=== PATIENT | male | born 1930 | race Caucasian/White ===

== ENCOUNTER 2018-02-04 15:47 | Inpatient (IN) | payer OTHER, MEDICARE ==
[~2018-02-04] VITALS: Ht 182.9 cm; Wt 97.5 kg
[~2018-02-04 15:47] MED LIST: ARICEPT10 M1 PO; ASPIRIN81 M4 PO; AVELOX400 M1 PO; DITROPAN XL15 M1 PO; FLOMAX0.4 M1 PO; LEXAPRO10 M1 PO; NAMENDA10 M2 PO; ZYRTEC10 M3 PO
[2018-02-04 17:18] LABS: ABSOLUTE BASOPHIL COUNT 0 /CUMM (0.0-0.2); ABSOLUTE EOSINOPHIL COUNT 0.1 /CUMM (0.0-0.7); ABSOLUTE GRANULOCYTE CT 4.7 /CUMM (1.4-6.5); ABSOLUTE LYMPH COUNT 0.7 /CUMM (1.2-3.4); ABSOLUTE MONOCYTE COUNT 0.3 /CUMM (0.10-0.60); BASOPHIL % 0 % (0.0-2.0); EOSINOPHIL % 2.2 % (0-5); GRANULOCYTE % 79.5 % (42.2-75.2); HEMATOCRIT 44.7 % (42-52); MEAN CORPUSCULAR HGB 26.6 PG (27.0-31.0); MEAN CORPUSCULAR HGB CONC 32.8 G/DL (33.0-37.0); MEAN CORPUSCULAR VOLUME 81.1 FL (80.0-94.0); MEAN PLATELET VOLUME 8.6 FL (7.4-10.4); PLATELET COUNT 187 /CUMM (130-400); RBC DISTRIBUTION WIDTH 13.7 % (11.5-14.5); RED BLOOD CELL CT 5.51 /CUMM (4.70-6.10); WHITE BLOOD CELL COUNT 5.9 /CUMM (4.8-10.8)
[2018-02-04 17:31] LABS: PT 12.2 SEC (9.4-12.5); PTT 30 SEC (25-37)
--- NOTE | 2018-02-04 17:44 | CT SCAN REPORT ---
CT HEAD WITHOUT IV CONTRAST CT CERVICAL SPINE WITHOUT IV CONTRAST INDICATION: Unwitnessed fall. Head strike. COMPARISON: Head CT 01/01/2017. TECHNIQUE: Multidetector CT acquisitions of the head and cervical spine were obtained without IV contrast. Multiplanar reformats were acquired and utilized for image interpretation. FINDINGS: HEAD: There is global cerebral volume loss with a temporal lobe predominance and there is also moderate to severe lateral and third ventriculomegaly that is disproportionate to sulcal prominence which should be correlated for clinical signs of normal pressure hydrocephalus. There is no intracranial hemorrhage, hydrocephalus, extra-axial surface collection, midline shift, or other herniation pattern. Shen to white matter differentiation is diffusely maintained without evidence of an evolved acute territorial infarct. The basilar cisterns are preserved. No significant soft tissue abnormality. Similar appearing partially imaged complete opacification of the left maxillary sinus with central high density material that may reflect inspissated secretions or the sequela of allergic fungal sinusitis. There is stable depression of the left orbital floor and lateralization of the left uncinate process suggesting a component of underlying silent sinus syndrome. ENT consultation and dedicated maxillofacial CT recommended for further assessment. CERVICAL SPINE: Mild anterior degenerative subluxation of C7 on T1. Cervical alignment is otherwise maintained. Moderate to severe disc volume loss at all cervical levels with the exception of C3-C4 and C7-T1. Multilevel endplate osteophytes. Hypertrophic degenerative changes involving the atlantodental interval. There is no acute fracture and there is no acute subluxation. The craniocervical and atlantoaxial articulations are normal. There is no prevertebral soft tissue swelling. No significant soft tissue abnormality within the neck. The visualized lung apices are clear. IMPRESSION: - No acute intracranial abnormality. - There is similar global cerebral volume loss with a temporal lobe predominance and there is also moderate to severe lateral and third ventriculomegaly that is disproportionate to sulcal prominence which should be correlated for clinical signs of normal pressure hydrocephalus. - No acute osseous abnormality within the cervical spine. Moderate to severe cervical spondylosis. - Similar appearing partially imaged complete opacification of the left maxillary sinus with central high density material that may reflect inspissated secretions or the sequela of allergic fungal sinusitis. There is stable depression of the left orbital floor and lateralization of the left uncinate process suggesting a component of underlying silent sinus syndrome. ENT consultation and dedicated maxillofacial CT recommended for further assessment.
--- NOTE | 2018-02-04 17:52 | ED MVC/FALL/TRAUMA COMPLAINT ---
See Addendum History of Present Illness General Chief Complaint: Fall Stated Complaint: BIBA FOR FALL/IRREGULAR HEARTBEAT PER EMS Source: patient, family, EMS Exam Limitations: no limitations Vital Signs & Intake/Output Vital Signs & Intake/Output Vital Signs Date Time Temp Pulse Resp B/P B/P Pulse O2 O2 Flow FiO2 Mean Ox Delivery Rate 02/04 2253 94 18 148/78 93 Room Air 02/04 1559 95 Room Air Room Air 02/04 1558 68 18 137/63 95 Room Air Room Air ED Intake and Output 02/05 0000 02/04 1200 Intake Total 100 Output Total Balance 100 Intake, IV 100 Patient 195 lb Weight Weight Estimated Measurement Method Allergies Coded Allergies: No Known Allergies (01/01/17) Reconcile Medications Aspirin (Aspirin*) 81 MG TAB.CHEW 1 TAB PO DAILY HEART HEALTH (Reported) Cetirizine HCl (Zyrtec) 10 MG TABLET 1 TAB PO QPM ALLERGIES (Reported) Donepezil HCl (Aricept) 10 MG TABLET 1 TAB PO DAILY DEMENTIA (Reported) Escitalopram Oxalate (Lexapro) 10 MG TABLET 1 TAB PO DAILY DEPRESSION ( Reported) Memantine HCl (Namenda) 10 MG TABLET 1 TAB PO BID DEMENTIA (Reported) Moxifloxacin HCl (Avelox) 400 MG TABLET 1 TAB PO DAILY PNEUMONIA Oxybutynin Chloride (Ditropan XL) 15 MG TAB.ER.24 1 TAB PO DAILY BLADDER ( Reported) Tamsulosin HCl (Flomax) 0.4 MG CAP.ER.24H 1 CAP PO DAILY BPH (Reported) Triage Note: BIBA FROM ASSISTED [facility]IV[facility] S/P UNWITNESSED FALL, WHO IS [place] "HEARD IT FROM THE OTHER ROOM". PER EMS PT FOUND ON FLOOR, -LOC NO BLOOD THINNERS. SMALL LAC TO LEFT SIDE OF HEAD. HX DEMENTIA Triage Nurses Notes Reviewed? yes Onset: Abrupt Duration: hour(s): (2), constant, continues in ED, getting worse Timing: single episode today Severity: mild, moderate Severity Numbers: 7 Injuries/Fall Location: lower extremity Method of Injury: fall Loss of Consciousness: unsure No Modifying Factors: none HPI: 80-year-old male history of dementia hypertension brought in by ambulance for evaluation after a fall. According to EMS patient was brought from a assisted living. who lives with him was in the other room when she heard a thud and he was found on the ground.. EMS arrived to find the patient on the ground complaining of pain to his left hip and head. He suffered a small abrasion and hematoma to the head. Unsure of loss of consciousness. Is not clear how he fell whether he tripped or passed out. Patient does have a history of unsteady gait and multiple falls. According to the facility he has a standing pivot at baseline he spends most of his time in a wheelchair. No blood thinners. According to his family he was at the bedside they feel his mental status is at baseline. He has had no fevers no chest pain no back pain or neck pain. (Laith Cross) Past History Travel History Traveled to [place] past 21 day No Medical History Any Pertinent Medical History? see below for history Neurological: dementia Cardiovascular: hypertension Renal: chronic kidney disease Surgical History Surgical History: none Psychosocial History What is your primary language Estonian Tobacco Use: Quit >30 days ago ETOH Use: denies use Illicit Drug Use: denies illicit drug use Family History Hx Contributory? No (Laith Cross) Review of Systems Review of Systems Constitutional: Reports: no symptoms. Eyes: Reports: no symptoms. Ears, Nose, Throat, Mouth: Reports: no symptoms. Respiratory: Reports: no symptoms. Cardiovascular: Reports: no symptoms. Gastrointestinal/Abdominal: Reports: no symptoms. Genitourinary: Reports: no symptoms. Musculoskeletal: Reports: see HPI, joint pain. Skin: Reports: no symptoms. Neurological/Psychological: Reports: dementia. All Other Systems: Reviewed and Negative (Laith Cross) Physical Exam Physical Exam General Appearance: well developed/nourished, no apparent distress, alert, awake Head: normal appearance, THERE IS A SUPERFICAL ABRASION AND SODT TISSUE SWELLING TO THE LEFT OCCIPTAL SCALP. NO LACERATION. NO GROSS DEFORMITY Eyes: Bilateral: normal appearance, PERRL, EOMI. Ears, Nose, Throat, Mouth: Tympanic normal, decreased hearing Neck: normal inspection, supple, full range of motion, no midline tenderness Respiratory: normal breath sounds, no respiratory distress, lungs clear, THERE IS TENDERNESS TO PALPATION OF THE BILATERAL RIBS ON THE LATERAL; ASPECT. NO BRUSING SWELLING OR ABRASIONS. NO FLAIL CHEST. Cardiovascular: regular rate/rhythm, normal peripheral pulses Peripheral Pulses: 2+ radial (R), 2+ radial (L) Gastrointestinal: normal bowel sounds, soft, non-tender, no organomegaly Back: normal inspection, normal range of motion, no vertebral tenderness Extremities: THERE IS REDUCED ROM AND PAIN TO PALPATION IN THE LEFT HIP. NO GROSS DEFORMITY. NO BRUSING SWELLING OR ABRASIONS. NO PAIN TO PALPATION ION THE KNEE OR LOWER LEG. PERIPHERAL PULSES INTACT. NO OTHER JOINT SWELLING OR PAIN Neurologic/Psych: no motor/sensory deficits, awake, alert, ORIENTED TO PERSON ONLY Skin: intact, normal color, warm/dry Core Measures ACS in differential dx? No CVA/TIA Diagnosis No Sepsis Present: No Sepsis Focused Exam Completed? No (Adolfo STEIN,Laith) Progress Differential Diagnosis: abd injury, C/T/L spine injury, ext injury, ICH, pelvis injury, FRACTURE CONTUSION SPRAIN Plan of Care: Orders Procedure Date/time Status Regular Diet 02/05 B Active CBC WITHOUT DIFFERENTIAL 02/05 600 Active BASIC ELECTROLYTES PLUS BUN&CR 02/05 600 Active Straight Cath 02/05 UNK Active Pathway - chart 02/04 2230 Active House Staff 02/04 2230 Active Patient Data 02/04 2230 Active Code Status 02/04 2230 Active Add-on Test (ER Only) 02/04 2047 Active Patient Data 02/04 2037 Active ED Holding Orders 02/04 2035 Active Admit to inpatient 02/04 2035 Active Vital Signs 02/04 2035 Active Code Status 02/04 2035 Complete Intake & Output 02/04 1823 Active CREATINE PHOSPHOKINASE 02/04 1640 Complete URINALYSIS 02/04 1553 Active TSH REFLEX 02/04 1553 Complete TROPONIN LEVEL 02/04 1553 Complete PARTIAL THROMBOPLASTIN TIME 02/04 1553 Complete PROTHROMBIN TIME 02/04 1553 Complete MAGNESIUM 02/04 1553 Complete COMPREHENSIVE METABOLIC PANEL 02/04 1553 Complete CBC WITHOUT DIFFERENTIAL 02/04 1553 Complete EKG 02/04 1553 Active VTE Mechanical Prophylaxis 02/04 UNK Active Vital Signs 02/04 UNK Active Activity/Ambulation 02/04 UNK Active Current Medications Sig/Mame Start time Last Medication Dose Stop Time Status Admin Aspirin 81 MG DAILY 02/05 900 AC (Aspirin) Donepezil HCl 10 MG DAILY 02/05 09 AC (Aricept) Escitalopram Oxalate 10 MG DAILY 02/05 900 AC (Lexapro) Memantine 10 MG BID 02/05 900 AC (Namenda) Oxybutynin Chloride 5 MG TID 02/05 09 AC (Ditropan) Tamsulosin HCl 0.4 MG DAILY 02/05 09 AC (Flomax) Heparin Sodium 5,000 UNIT Q8 02/05 0600 AC (Porcine) Sodium Chloride 1,000 ML Q13H 02/04 2245 AC (Normal Saline 0.9%) 02/06 0044 Acetaminophen 650 MG Q6P PRN 02/04 2230 AC (Tylenol) Acetaminophen 1,000 MG Q6P PRN 02/04 2230 AC (Ofirmev) Oxycodone/ 1 TAB Q6P PRN 02/04 2230 AC Acetaminophen (Percocet) Laboratory Tests 02/04/18 1640: Anion Gap 7, Estimated GFR > 60, BUN/Creatinine Ratio 23.0, Glucose 98, Calcium 8.9, Magnesium 2.0, Total Bilirubin 0.5, AST 23, ALT 33, Alkaline Phosphatase 86 , Creatine Kinase 43 L, Troponin I 0.03, Total Protein 6.6, Albumin 3.8, Globulin 2.8, Albumin/Globulin Ratio 1.4, TSH &T3 &Free T4 Intrp 1.450, PT 12.2, INR 1.12, APTT 30, CBC w Diff NO MAN DIFF REQ, RBC 5.51, MCV 81.1, MCH 26.6 L, MCHC 32.8 L, RDW 13.7, MPV 8.6, Gran % 79.5 H, Lymphocytes % 12.6 L, Monocytes % 5.7, Eosinophils % 2.2, Basophils % 0, Absolute Granulocytes 4.7, Absolute Lymphocytes 0.7 L, Absolute Monocytes 0.3, Absolute Eosinophils 0.1, Absolute Basophils 0 Patient was brought in by ambulance from a senior care facility for evaluation after a fall. According to the family and facility he usually only stands and pivots. He did hit his head and has pain in the left lateral hip. CT scans of the head neck chest abdomen pelvis were obtained labs EKG obtained. CT scans are unremarkable for signs of acute injury. Blood work EKG unremarkable. Patient is below his baseline. He currently is unable to even sit up in the bed without severe pain in the hip. X-rays will be obtained to rule out fracture of both the hip and femur. Patient will require admission for placement into an acute rehab since he was unable to even sit up in the bed where he usually is able to stand and pivot. Patient will require case management, physical therapy, serial labs, pain control. Case discussed with Dr. Chilel he agrees. Diagnostic Imaging: Viewed by Me: CT Scan. Discussed w/RAD: CT Scan. Radiology Impression: PATIENT: KAY GORMAN PRESENT AGE: 88 PATIENT ACCOUNT NO: [id number] : [birth year] LOCATION: [facility] ORDERING PHYSICIAN: Laith STEIN SERVICE DATE: 02/04/18 EXAM TYPE: CAT - CT CERV SPINE WO IV CONTRAST; CT HEAD WO IV CONTRAST CT HEAD WITHOUT IV CONTRAST CT CERVICAL SPINE WITHOUT IV CONTRAST INDICATION: Unwitnessed fall. Head strike. COMPARISON: Head CT 01/01/2017. TECHNIQUE: Multidetector CT acquisitions of the head and cervical spine were obtained without IV contrast. Multiplanar reformats were acquired and utilized for image interpretation. FINDINGS: HEAD: There is global cerebral volume loss with a temporal lobe predominance and there is also moderate to severe lateral and third ventriculomegaly that is disproportionate to sulcal prominence which should be correlated for clinical signs of normal pressure hydrocephalus. There is no intracranial hemorrhage, hydrocephalus, extra-axial surface collection, midline shift, or other herniation pattern. Shen to white matter differentiation is diffusely maintained without evidence of an evolved acute territorial infarct. The basilar cisterns are preserved. No significant soft tissue abnormality. Similar appearing partially imaged complete opacification of the left maxillary sinus with central high density material that may reflect inspissated secretions or the sequela of allergic fungal sinusitis. There is stable depression of the left orbital floor and lateralization of the left uncinate process suggesting a component of underlying silent sinus syndrome. ENT consultation and dedicated maxillofacial CT recommended for further assessment. CERVICAL SPINE: Mild anterior degenerative subluxation of C7 on T1. Cervical alignment is otherwise maintained. Moderate to severe disc volume loss at all cervical levels with the exception of C3-C4 and C7-T1. Multilevel endplate osteophytes. Hypertrophic degenerative changes involving the atlantodental interval. There is no acute fracture and there is no acute subluxation. The craniocervical and atlantoaxial articulations are normal. There is no prevertebral soft tissue swelling. No significant soft tissue abnormality within the neck. The visualized lung apices are clear. IMPRESSION: - No acute intracranial abnormality. - There is similar global cerebral volume loss with a temporal lobe predominance and there is also moderate to severe lateral and third ventriculomegaly that is disproportionate to sulcal prominence which should be correlated for clinical signs of normal pressure hydrocephalus. - No acute osseous abnormality within the cervical spine. Moderate to severe cervical spondylosis. - Similar appearing partially imaged complete opacification of the left maxillary sinus with central high density material that may reflect inspissated secretions or the sequela of allergic fungal sinusitis. There is stable depression of the left orbital floor and lateralization of the left uncinate process suggesting a component of underlying silent sinus syndrome. ENT consultation and dedicated maxillofacial CT recommended for further assessment. DICTATED BY: Jethro Harman MD DATE/TIME DICTATED:02/04/181721 [employer] DIV[employer] SUPERVISOR:MARITZA DATE/TIME TRANSCRIBED:1721, PATIENT: KAY GORMAN PRESENT AGE: 88 PATIENT ACCOUNT NO: [id number] : [birth year] LOCATION: [facility] ORDERING PHYSICIAN: Laith STEIN SERVICE DATE: 02/04/18 EXAM TYPE: CAT - CT ABD & PELVIS W /O IV CONTRAS; CT CHEST WO IV CONTRAST EXAMINATION: CT CHEST, ABDOMEN AND PELVIS WITHOUT CONTRAST CLINICAL INFORMATION: Fall. Bilateral rib pain. Bilateral hip pain. Pelvic pain. COMPARISON: None. TECHNIQUE: Multidetector volumetric CT imaging of the chest, abdomen and pelvis was obtained without oral or intravenous contrast. Coronal and sagittal reformatted images are performed at the CT scanner. DLP: 1293.88 mGy-cm. FINDINGS: The patient was imaged with the arms at the side. This does cause streak artifact for the study. CT CHEST: LUNGS : There is a small linear reticular opacity in the subpleural lung at the right upper lobe posteriorly, image 11 (3) likely linear scarring. There is also linear opacities of scarring and/or subsegmental atelectasis at the left lung base. The left diaphragm is asymmetrically elevated. No focal consolidation. The central bronchial airways are open. MEDIASTINUM: No mediastinal mass or significant lymphadenopathy. There are vascular wall calcifications of aortic arch. PLEURA: There is no pleural effusion. No pleural mass or thickening. AXILLA: No lymphadenopathy. CT ABDOMEN AND PELVIS: LIVER, GALLBLADDER, AND BILIARY TREE: There is a 3 cm cyst in the left lobe of the liver. No suspicious liver lesions. No intrahepatic bile duct dilatation. The gallbladder is unremarkable with no evidence of radiopaque gallstones, gallbladder wall thickening, or obvious pericholecystic inflammatory changes. PANCREAS: No acute change of the pancreas. No mass. No pancreatic duct dilatation. SPLEEN: Spleen normal in size and contour. No focal lesion. ADRENAL GLANDS: Adrenal glands are normal in size. No focal mass. KIDNEYS AND URETERS: There are multiple bilateral renal cysts. There is no calculus or hydronephrosis. BLADDER: Though bladder has not herniating the dome of the bladder does extend toward the right inguinal hernia. GASTROINTESTINAL TRACT: There is diverticulosis of the colon. The diverticula are most numerous at the sigmoid. There is no diverticulitis. No bowel wall thickening or edema. The appendix is not seen. There is no inflammation of the mesentery. The small bowel loops are unremarkable. MESENTERY : No focal inflammation. No free fluid. No free air. ABDOMINAL WALL: There are fat-containing bilateral inguinal hernias. These measure 6 x 4 cm on the left and 4 x 5 cm on the right. LYMPH NODES: Normal. VASCULAR: There are scattered vascular wall calcifications of the aorta and iliac arteries without aneurysm. PELVIC VISCERA: Unremarkable. OSSEOUS STRUCTURES: There is no acute abnormality. No fracture. Degenerative spondylosis of the spine with multilevel endplate spurring of the vertebrae, disc height narrowing and facet joint arthrosis. There is degenerative spurring of femoral head and acetabula of both hips with mild joint space narrowing but no erosion. IMPRESSION: No acute abnormality of the chest, abdomen or pelvis. DICTATED BY: Krzysztof Rob MD DATE/TIME DICTATED:1755 [employer] DIV[employer] SUPERVISOR:MARITZA DATE/TIME TRANSCRIBED:02/04/181755 CONFIDENTIAL, DO NOT COPY WITHOUT APPROPRIATE AUTHORIZATION. <Electronically signed in Other Vendor System> SIGNED BY: Krzysztof Rob MD 02/04/18 294 Initial ED EKG: normal sinus rhythm, PVC, INCOMPLETE LBBB ANTERIOR Q WAVES (Laith Cross) Departure Departure Disposition: STILL A PATIENT Condition: Stable Referrals: Susi MCCRAY,Flaco Redd (PCP/Family) Departure Forms: Customer Survey General Discharge Information Admission Note Spoke With: Sherita Burroughs MD Documentation of Exam: Documentation of any treatments & extenuating circumstances including Concerns Regarding Discharge (functional status, medication knowledge or non-compliance, living conditions, etc.) that warrant an admission rather than observation: [ Case management, physical therapy, placement into acute rehab, monitoring of vital signs, serial labs, IV pain meds, patient is not at his baseline. He is unable to stand and pivot he is unable to even sit up in the bed] (Adolfo STEIN,Laith) Departure Clinical Impression Primary Impression: Hip pain, left Secondary Impressions: Closed left hip fracture, Gait instability, Weakness PA/METAL DRILL PRESS OPERATOR Co-Sign Statement Statement: ED Attending supervision documentation- [X] I saw and evaluated the patient. I have also reviewed all the pertinent lab results and diagnostic results. I agree with the findings and the plan of care as documented in the PA's/METAL DRILL PRESS OPERATOR's documentation. [X] I have reviewed the ED Record and agree with the PA's/METAL DRILL PRESS OPERATOR's documentation. [] Additions or exceptions (if any) to the PAs/METAL DRILL PRESS OPERATOR's note and plan are summarized below: [LEFT HIPFRACTURE, ORTHO CONSULT PAINCONTROL] (Ranjana MCCRAY,Jayce Em)
--- NOTE | 2018-02-04 18:42 | CT SCAN REPORT ---
EXAMINATION: CT CHEST, ABDOMEN AND PELVIS WITHOUT CONTRAST CLINICAL INFORMATION: Fall. Bilateral rib pain. Bilateral hip pain. Pelvic pain. COMPARISON: None. TECHNIQUE: Multidetector volumetric CT imaging of the chest, abdomen and pelvis was obtained without oral or intravenous contrast. Coronal and sagittal reformatted images are performed at the CT scanner. DLP: 1293.88 mGy-cm. FINDINGS: The patient was imaged with the arms at the side. This does cause streak artifact for the study. CT CHEST: LUNGS: There is a small linear reticular opacity in the subpleural lung at the right upper lobe posteriorly, image 11 (3) likely linear scarring. There is also linear opacities of scarring and/or subsegmental atelectasis at the left lung base. The left diaphragm is asymmetrically elevated. No focal consolidation. The central bronchial airways are open. MEDIASTINUM: No mediastinal mass or significant lymphadenopathy. There are vascular wall calcifications of aortic arch. PLEURA: There is no pleural effusion. No pleural mass or thickening. AXILLA: No lymphadenopathy. CT ABDOMEN AND PELVIS: LIVER, GALLBLADDER, AND BILIARY TREE: There is a 3 cm cyst in the left lobe of the liver. No suspicious liver lesions. No intrahepatic bile duct dilatation. The gallbladder is unremarkable with no evidence of radiopaque gallstones, gallbladder wall thickening, or obvious pericholecystic inflammatory changes. PANCREAS: No acute change of the pancreas. No mass. No pancreatic duct dilatation. SPLEEN: Spleen normal in size and contour. No focal lesion. ADRENAL GLANDS: Adrenal glands are normal in size. No focal mass. KIDNEYS AND URETERS: There are multiple bilateral renal cysts. There is no calculus or hydronephrosis. BLADDER: Though bladder has not herniating the dome of the bladder does extend toward the right inguinal hernia. GASTROINTESTINAL TRACT: There is diverticulosis of the colon. The diverticula are most numerous at the sigmoid. There is no diverticulitis. No bowel wall thickening or edema. The appendix is not seen. There is no inflammation of the mesentery. The small bowel loops are unremarkable. MESENTERY: No focal inflammation. No free fluid. No free air. ABDOMINAL WALL: There are fat-containing bilateral inguinal hernias. These measure 6 x 4 cm on the left and 4 x 5 cm on the right. LYMPH NODES: Normal. VASCULAR: There are scattered vascular wall calcifications of the aorta and iliac arteries without aneurysm. PELVIC VISCERA: Unremarkable. OSSEOUS STRUCTURES: There is no acute abnormality. No fracture. Degenerative spondylosis of the spine with multilevel endplate spurring of the vertebrae, disc height narrowing and facet joint arthrosis. There is degenerative spurring of femoral head and acetabula of both hips with mild joint space narrowing but no erosion. IMPRESSION: No acute abnormality of the chest, abdomen or pelvis.
--- NOTE | 2018-02-04 20:55 | History & Physical ---
Elise Robertson 02/04/182053: General Information and HPI MD Statement: I have seen and personally examined KAY GORMAN and documented this H&P. The patient is a 88 year old M who presented with a patient stated chief complaint of []. Source of Information: old records Exam Limitations: dementia History of Present Illness: 88 year old male with PMH HTN and dementia presenting s/p unwitnessed fall earlier today. No one was with the patient when we went to see him. Per ED record who spoke to family; patient's heard a noise and found the patient on the floor. They live in an assisted living. EMS was called and patient brought to ED. Per family there was no LOC and patient is not on blood thinners. Patient was complaining of head pain and left hip pain post fall. Allergies/Medications Allergies: Coded Allergies: No Known Allergies (01/01/17) Home Med list Aspirin (Aspirin*) 81 MG TAB.CHEW 1 TAB PO DAILY HEART HEALTH (Reported) Cetirizine HCl (Zyrtec) 10 MG TABLET 1 TAB PO QPM ALLERGIES (Reported) Donepezil HCl (Aricept) 10 MG TABLET 1 TAB PO DAILY DEMENTIA (Reported) Escitalopram Oxalate (Lexapro) 10 MG TABLET 1 TAB PO DAILY DEPRESSION ( Reported) Memantine HCl (Namenda) 10 MG TABLET 1 TAB PO BID DEMENTIA (Reported) Moxifloxacin HCl (Avelox) 400 MG TABLET 1 TAB PO DAILY PNEUMONIA Oxybutynin Chloride (Ditropan XL) 15 MG TAB.ER.24 1 TAB PO DAILY BLADDER ( Reported) Tamsulosin HCl (Flomax) 0.4 MG CAP.ER.24H 1 CAP PO DAILY BPH (Reported) Past History Travel History Traveled to [place] past 21 day No Medical History Neurological: dementia Cardiovascular: hypertension Renal: chronic kidney disease Surgical History Surgical History: none Past Family/Social History Psychosocial History Where do you live? Assisted Living Who Do You Live With? spouse Smoking Status: Never Smoked ETOH Use: denies use Illicit Drug Use: denies illicit drug use Employment History Employment Retired Review of Systems Review of Systems Constitutional: Reports: see HPI. EENTM: Reports: see HPI. Cardiovascular: Reports: see HPI. Respiratory: Reports: see HPI. GI: Reports: see HPI. Genitourinary: Reports: see HPI. Musculoskeletal: Reports: see HPI, joint pain. Skin: Reports: no symptoms. Exam & Diagnostic Data Last 24 Hrs of Vital Signs/I&O Vital Signs Date Time Temp Pulse Resp B/P B/P Pulse O2 O2 Flow FiO2 Mean Ox Delivery Rate 02/04 2253 94 18 148/78 93 Room Air 02/04 1559 95 Room Air Room Air 02/04 1558 68 18 137/63 95 Room Air Room Air Intake & Output 02/05 0800 02/05 0000 02/04 1600 Intake Total 100 Output Total Balance 100 Intake, IV 100 Patient 195 lb Weight Weight Estimated Measurement Method Physical Exam General Appearance No Acute Distress (A&Ox1; self) Skin No Rashes Skin Temp/Moisture Exam: Warm/Dry HEENT Atraumatic Neck Supple Cardiovascular Regular Rate, Normal S1, Normal S2, ? diastolic murmur Lungs Clear to Auscultation Abdomen Normal Bowel Sounds, Soft Extremities Normal Pulses, mild shortening of LLE; externally rotated, DP/PT intact BLE Assessment/Plan Assessment: 88 year old male with PMH HTN and dementia presenting s/p unwitnessed fall earlier today. No one was with the patient when we went to see him. Per ED record who spoke to family; patient's heard a noise and found the patient on the floor. They live in an assisted living. EMS was called and patient brought to ED. Per family there was no LOC and patient is not on blood thinners. Patient was complaining of head pain and left hip pain post fall. Patient found to have Left femoral neck fracture. Will admit to general medicine service for further care of the following: Problem List: 1. Left Femoral Neck Fracture Admission Data: VS P68 RR18 BP137/63 Sat95%RA Labs: WBC 5.9 H/H 14.7/44.7 Plt 187 Na 139 K4.2 BUN/Cr 23/1.0 TSH WNL, LFTs WNL XR left hip: IMPRESSION: Subtle left femoral neck fracture. CT chest/abd/pelv: no acute disease process CT head/ C-spine: IMPRESSION: - No acute intracranial abnormality. - There is similar global cerebral volume loss with a temporal lobe predominance and there is also moderate to severe lateral and third ventriculomegaly that is disproportionate to sulcal prominence which should be correlated for clinical signs of normal pressure hydrocephalus. - No acute osseous abnormality within the cervical spine. Moderate to severe cervical spondylosis. - Similar appearing partially imaged complete opacification of the left maxillary sinus with central high density material that may reflect inspissated secretions or the sequela of allergic fungal sinusitis. There is stable depression of the left orbital floor and lateralization of the left uncinate process suggesting a component of underlying silent sinus syndrome. ENT consultation and dedicated maxillofacial CT recommended for further assessment. ED Tx: IV tylenol #Acute Left Femoral Neck Fracture s/p unwitnessed fall- mechanical vs NPH associated gait instability? -Ortho consulted; awaiting recs -IV tylenol and percocet for pain -Daughter want to be contacted before ortho interventions implemented should they be recommended. DVT prophylaxis: heparin/ALPS Code status: full code until discuss with family As Ranked By This Provider Problem List: 1. Closed left hip fracture Core Measures/Misc (02/25) Acute Coronary Syndrome ACS Diagnosis: No Congestive Heart Failure Congestive Heart Failure Diagnosis No Cerebrovascular Accident CVA/TIA Diagnosis: No VTE (View Protocol) VTE Risk Factors Acute Medical Illness No Mechanical VTE Prophylaxis d/t N/A MechProphylax Ordered No VTE Pharm Prophylaxis d/t NA PharmProphylax ordered Sepsis (View protocol) Sepsis Present: No If YES complete Sepsis Event Note If YES complete Sepsis Event Note Sherita Burroughs MD 02/05/18 0020: Core Measures/Misc (02/25) Sepsis (View protocol) If YES complete Sepsis Event Note If YES complete Sepsis Event Note Attending MD Review Statement Attending Statement Attending MD Statement: examined this patient, discuss w/resident/PA/TUBE LASER OPERATOR, agreed w/resident/PA/TUBE LASER OPERATOR, reviewed EMR data (avail) Attending Assessment/Plan: 88M PMH dementia, HTN, BPH presents with fall. Patient lives in assisted living with his . His heard a thud, and found him on the ground. He had fallen onto his left side and hit his head, and was brought to ER. Patient is pleasantly confused and per family is at his mental baseline, which is confused, at times confabulating, but pleasant. He denies a headache but reports left hip pain which is worse when moving. His neuro exam is normal, and he has tenderness to the left hip and left inguinal area. CT head shows chronic sinusitis, though no symptoms of this. Left hip x-ray shows femoral neck fracture. EKG NSR, no loss of consciousness or cardiac symptoms. 1. Fall, initial 2. Left femoral neck fracture 3. Alzheimer's dementia Plan - Admit to general medicine - Orthopedic consult - Tylenol for pain control - NPO after midnight - Continue home medications - DVT PPx - Patient's children would like to be involved in any decisions regarding surgery, may contact Herbert (number in chart) Kennedy Meza 02/05/18 0218: Core Measures/Misc (02/25) Sepsis (View protocol) If YES complete Sepsis Event Note If YES complete Sepsis Event Note Resident Review Statement Resident Statement: examined this patient, discussed with internal auditor, agreed with internal auditor, discussed with family, reviewed EMR data (avail), discussed with nursing , discussed with case mgmt, reviewed images, amended to note Other Findings: This is a 88-year-old male with past medical history significant for advance her dementia, depression, BPH is brought in by ambulance to the hospital after unwitnessed fall. As per ED reports who spoke with the family, patient's heard a noise and when she went to see the patient he was found lying on the floor. No loss of consciousness. She reports unwitnessed fall. Of note they live in assisted care facility. Patient is not on any blood thinners. Patient reported left hip pain after fall. Given his advanced dementia We could not get any history from the patient. As per family members his mental status is at baseline. We could not get any review of systems. - Vitals afebrile, heart rate 68, respiratory rate 18, blood pressure 137/63, saturating at 95 on room air WBC 5.9 H/H 14.7/44.7 Plt 187 Na 139 K4.2 BUN/Cr 23/1.0 TSH WNL LFTs WNL XR left hip: Subtle left femoral neck fracture. CT chest/abd/pelv: no acute disease process CT head/ C-spine: No acute intracranial abnormality. - There is similar global cerebral volume loss with a temporal lobe predominance and there is also moderate to severe lateral and third ventriculomegaly that is disproportionate to sulcal prominence which should be correlated for clinical signs of normal pressure hydrocephalus. - No acute osseous abnormality within the cervical spine. Moderate to severe cervical spondylosis. - Similar appearing partially imaged complete opacification of the left maxillary sinus with central high density material that may reflect inspissated secretions or the sequela of allergic fungal sinusitis. There is stable depression of the left orbital floor and lateralization of the left uncinate process suggesting a component of underlying silent sinus syndrome. ENT consultation and dedicated maxillofacial CT recommended for further assessment. Acute left femoral neck fracture status post unwitnessed fall Patient was brought in by ambulance after unwitnessed fall, he reported left hip pain after fall. Hip x-ray showed acute left femoral neck fracture. Most likely mechanical versus NPH associated gait instability. * Admitted to [facility] * Monitor vitals every shift * Fall precautions * Ortho consult * Follow-up orthopedic recommendations regarding further management * IV fluids * Adequate pain management * N.p.o. pending orthopedic evaluation Dementia continue donepezil, Namenda daily Depression continue Lexapro daily BPH continue Flomax 0.4 and oxybutynin daily DVT prophylaxis subcu heparin and nebs NPO confirm CODE STATUS with family knee Regular diet
--- NOTE | 2018-02-04 21:40 | RADIOLOGY REPORT ---
EXAMINATION: XR HIP, LEFT XR FEMUR, LEFT CLINICAL INFORMATION: Fall with question of fracture. COMPARISON: CT abdomen and pelvis 11/25/[address] abdomen and pelvis earlier today. TECHNIQUE: Three views of the left hip. FINDINGS: HIP: There is a subtle fracture involving the left femoral neck proximally with minimal displacement. In retrospect, this can be seen on the CT scan performed earlier in the evening on the sagittal and coronal reconstructions (see perez images). No other fractures are seen. FEMUR: The remainder of the femur is unremarkable. Degenerative changes are present in the knee. IMPRESSION: Subtle left femoral neck fracture. This result was discussed with Dr. Laith Mata at 9:30 PM on the day of the exam and it was ascertained that the content of the report was understood at the time of direct communication.
--- NOTE | 2018-02-05 00:24 | Admission Certification ---
Admission Certification Certification Statement - As attending physician, I certify that at the time of - admission, based on clinical presentation, severity of - symptoms, need for further diagnostic testing and - therapeutic interventions, and risk of adverse outcomes - without in-hospital treatment, in my clinical assessment, - this patient requires an acute hospital stay for a minimum - of two nights or longer. I have also considered psychsocial - factors such as support system, advanced age, financial - issues, cognitive issues, and failed out-patient treatments, - past re-admission history, safety of patient, and lack of - compliance as applicable. Specific rationale supporting this admission is: Left hip fracture
[2018-02-05 06:12] VITALS: BP 147/70; BP 177/72
--- NOTE | 2018-02-05 07:15 | PN- Housestaff ---
Dago Estrella 02/05/18 0714: Subjective Follow-up For: s/p mechanical fall Subjective: Pt seen and examined this AM. He was confused, though at his baseline. He does have a history of dementia. He was visibly in pain, especially when moved. His VS were stable, no LOC as per the family. No other complains could be gathered from the patients. Review of Systems Constitutional: Reports: see HPI. Comments: Unable to obtain ROS due to patient's dementia. Objective Last 24 Hrs of Vital Signs/I&O Vital Signs Date Time Temp Pulse Resp B/P B/P Pulse O2 O2 Flow FiO2 Mean Ox Delivery Rate 02/05 1630 98.2 72 18 132/78 99 Room Air 02/05 1630 98.2 72 18 132/78 96 Room Air 02/05 0805 97.9 68 18 129/74 96 Room Air 02/05 0802 97.9 68 18 129/74 96 Room Air 02/05 0612 97.6 20 147/70 94 Room Air 02/04 2253 94 18 148/78 93 Room Air Intake & Output 02/05 1600 02/05 0800 02/05 0000 Intake Total 500 220 Output Total Balance 500 220 Intake, IV 500 100 Intake, Oral 0 120 Number 1 Bowel Movements Patient 215 lb 195 lb Weight Weight Estimated Measurement Method Physical Exam General Appearance: Moderate Distress Cardiovascular: Regular Rate, Normal S1, Normal S2 Lungs: Clear to Auscultation, Normal Air Movement Abdomen: Normal Bowel Sounds, Soft, No Tenderness Extremities: externally rotated LLE Current Medications: Current Medications Sig/Mame Start time Last Medication Dose Route Stop Time Status Admin Acetaminophen 0 .STK-MED ONE 02/05 0302 DC IV Acetaminophen 650 MG Q6P PRN 02/04 2230 AC PO Acetaminophen 1,000 MG Q6P PRN 02/04 2230 AC 02/05 IV 1435 Aspirin 81 MG DAILY 02/05 900 CAN PO Donepezil HCl 10 MG DAILY 02/05 09 AC 02/05 PO 09 Escitalopram Oxalate 10 MG DAILY 02/05 09 AC 02/05 PO 09 Heparin Sodium 0 .STK-MED ONE 02/05 0645 DC (Porcine) .ROUTE Heparin Sodium 5,000 UNIT Q8 02/05 06 AC 02/05 (Porcine) SC 1421 Memantine 10 MG BID 02/05 0900 AC 02/05 PO 0909 Oxybutynin Chloride 5 MG TID 02/05 0900 AC 02/05 PO 1421 Oxycodone/ 1 TAB Q6P PRN 02/04 2230 AC Acetaminophen PO Potassium Chloride 20 MEQ Q13H 02/05 0930 AC 02/05 Dextrose/Sodium 1,000 ML IV 0954 Chloride Potassium Chloride 20 MEQ ONCE ONE 02/05 0900 CAN IV 02/05 0901 Sodium Chloride 1,000 ML Q13H 02/04 2245 AC 02/05 IV 02/06 0044 0259 Tamsulosin HCl 0.4 MG DAILY 02/05 0900 AC 02/05 PO 0909 Last 24 Hrs of Lab/Calvin Results Last 24 Hrs of Labs/Mics: Laboratory Tests 02/05/18 0625: Anion Gap 6, Estimated GFR > 60, BUN/Creatinine Ratio 24.5, CBC w Diff NO MAN DIFF REQ, RBC 5.28, MCV 80.4, MCH 27.0, MCHC 33.6, RDW 13.8, MPV 8.6, Gran % 84.8 H, Lymphocytes % 8.0 L, Monocytes % 4.4, Eosinophils % 2.7, Basophils % 0.1, Absolute Granulocytes 9.1 H, Absolute Lymphocytes 0.9 L, Absolute Monocytes 0.5, Absolute Eosinophils 0.3, Absolute Basophils 0 02/05/18 0240: Urine Color YEL, Urine Clarity HAZY H, Urine pH 7.5, Ur Specific [place] 1.020, Urine Protein TRACE H, Urine Ketones TRACE H, Urine Nitrite NEG, Urine Bilirubin NEG, Urine Urobilinogen 1.0, Ur Leukocyte Esterase NEG, Ur Microscopic SEDIMENT EXAMINED, Urine RBC >75 H, Urine WBC 1-3 H, Ur Epithelial Cells OCCAS , Urine Hemoglobin LARGE H, Urine Glucose NEG Orders Radiology Findings: XR left hip: IMPRESSION: Subtle left femoral neck fracture. CT chest/abd/pelv: no acute disease process CT head/ C-spine: IMPRESSION: - No acute intracranial abnormality. - There is similar global cerebral volume loss with a temporal lobe predominance and there is also moderate to severe lateral and third ventriculomegaly that is disproportionate to sulcal prominence which should be correlated for clinical signs of normal pressure hydrocephalus. - No acute osseous abnormality within the cervical spine. Moderate to severe cervical spondylosis. - Similar appearing partially imaged complete opacification of the left maxillary sinus with central high density material that may reflect inspissated secretions or the sequela of allergic fungal sinusitis. There is stable depression of the left orbital floor and lateralization of the left uncinate process suggesting a component of underlying silent sinus syndrome. ENT consultation and dedicated maxillofacial CT recommended for further assessment. Assessment/Plan Assessment: 88 y/o M with PMH HTN and dementia presenting s/p unwitnessed fall earlier today. Patient's heard a noise and found the patient on the floor, she reported no LOC. They live in an assisted living facility. He is not on anticoagulation. Patient was complaining of head pain and left hip pain post fall. Imaging shows left femoral neck fracture. Head CT shows no acute intracranial pathology. Pt was admitted for further care of: #Left femoral neck fracture -Ortho consulted. Plan for surgical pinning in the AM. NPO from midnight. -IV tylenol and percocet for pain, as per surgery -Daughter is POA. -RCRI of 0.4%: no high risk surgery, history of CHF, CVA, preop treatmet with insulin or Cr>2.0 - Low Risk, Class I. FULL CODE NPO after midnight, OR in the AM DVT hep subQ, alps Problem List: 1. Hip pain, left 2. Closed left hip fracture Pain Ratin (Not assessed, pt's dementia) Pain Location: LLE Pain Goal: Pain 4 or less Pain Plan: as per pathway Tomorrow's Labs & Rationales: as indicated Arsenio Hurt MD 02/05/182049: Attending MD Review Statement Attending Statement Attending MD Statement: examined this patient, discuss w/resident/PA/PUNCHING MACHINE OPERATOR, agreed w/resident/PA/PUNCHING MACHINE OPERATOR, discussed with family, reviewed EMR data (avail), discussed with nursing, discussed with case mgmt, reviewed images, amended to note Attending Assessment/Plan: The patient was seen and discussed with house staff. RCRI as above and patient has acceptable risk for surgery. Medically stable for planned hip pinning to be done tomorrow. Will attempt to minimize narcotics to avoid delirium. Consider IV tylenol and Celebrex among pain control options.
[2018-02-05 08:02] VITALS: BP 129/74
[2018-02-05 08:19] LABS: ABSOLUTE BASOPHIL COUNT 0 /CUMM (0.0-0.2); ABSOLUTE EOSINOPHIL COUNT 0.3 /CUMM (0.0-0.7); ABSOLUTE GRANULOCYTE CT 9.1 /CUMM (1.4-6.5); ABSOLUTE LYMPH COUNT 0.9 /CUMM (1.2-3.4); ABSOLUTE MONOCYTE COUNT 0.5 /CUMM (0.10-0.60); BASOPHIL % 0.1 % (0.0-2.0); EOSINOPHIL % 2.7 % (0-5); GRANULOCYTE % 84.8 % (42.2-75.2); HEMATOCRIT 42.4 % (42-52); MEAN CORPUSCULAR HGB CONC 33.6 G/DL (33.0-37.0); MEAN CORPUSCULAR VOLUME 80.4 FL (80.0-94.0); MEAN PLATELET VOLUME 8.6 FL (7.4-10.4); PLATELET COUNT 180 /CUMM (130-400); RBC DISTRIBUTION WIDTH 13.8 % (11.5-14.5); RED BLOOD CELL CT 5.28 /CUMM (4.70-6.10)
[2018-02-05 08:31] LABS: WHITE BLOOD CELL COUNT 10.8 /CUMM (4.8-10.8)
--- NOTE | 2018-02-05 08:44 | Cons- Orthopedic ---
See Addendum General Information and HPI Consulting Request Date of Consult: 02/05/18 Requested By: Sherita Burroughs MD Reason for Consult: L hip fracture Source of Information: old records Exam Limitations: dementia History of Present Illness: THIS IS AN 88YO DEMENTED MALE THAT LIVES AT AN ASSISTED LIVING FACILITY WITH HX OF DEMENTIA AND HTN WHO, ACCORDING TO MEDICAL RECORDS, HAD AN UNWITNESSED FALL. NOW IS FOUND TO HAVE A LEFT FEMORAL NECK FRACTURE. PT CURRENTLY DENIES PAIN. DENIES PARESTHESIAS. DENIES CP/SOB. Allergies/Medications Allergies: Coded Allergies: No Known Allergies (01/01/17) Home Med List: Aspirin (Aspirin*) 81 MG TAB.CHEW 1 TAB PO DAILY HEART HEALTH (Reported) Cetirizine HCl (Zyrtec) 10 MG TABLET 1 TAB PO QPM ALLERGIES (Reported) Donepezil HCl (Aricept) 10 MG TABLET 1 TAB PO DAILY DEMENTIA (Reported) Escitalopram Oxalate (Lexapro) 10 MG TABLET 1 TAB PO DAILY DEPRESSION ( Reported) Memantine HCl (Namenda) 10 MG TABLET 1 TAB PO BID DEMENTIA (Reported) Moxifloxacin HCl (Avelox) 400 MG TABLET 1 TAB PO DAILY PNEUMONIA Oxybutynin Chloride (Ditropan XL) 15 MG TAB.ER.24 1 TAB PO DAILY BLADDER ( Reported) Tamsulosin HCl (Flomax) 0.4 MG CAP.ER.24H 1 CAP PO DAILY BPH (Reported) Current Medications: Current Medications Sig/Mame Start time Last Medication Dose Route Stop Time Status Admin Acetaminophen 0 .STK-MED ONE 02/05 0302 DC IV Acetaminophen 650 MG Q6P PRN 02/04 2230 AC PO Acetaminophen 1,000 MG Q6P PRN 02/04 2230 AC 02/05 IV 0303 Acetaminophen 0 .STK-MED ONE 02/04 1821 DC IV Acetaminophen 1,000 MG ONCE ONE 02/04 1745 DC 02/04 N/A 1 UNIT IV 02/04 175 1823 Aspirin 81 MG DAILY 02/05 0900 CAN PO Donepezil HCl 10 MG DAILY 02/05 0900 AC 02/05 PO 0909 Escitalopram Oxalate 10 MG DAILY 02/05 09 AC 02/05 PO 0909 Heparin Sodium 0 .STK-MED ONE 02/05 0645 DC (Porcine) .ROUTE Heparin Sodium 5,000 UNIT Q8 02/05 0600 AC 02/05 (Porcine) SC 0715 Memantine 10 MG BID 02/05 0900 AC 02/05 PO 0909 Oxybutynin Chloride 5 MG TID 02/05 09 AC 02/05 PO 0909 Oxycodone/ 1 TAB Q6P PRN 02/04 2230 AC Acetaminophen PO Potassium Chloride 20 MEQ Q13H 02/05 0930 AC Dextrose/Sodium 1,000 ML IV Chloride Potassium Chloride 20 MEQ ONCE ONE 02/05 09 CAN IV 02/05 0901 Sodium Chloride 1,000 ML Q13H 02/04 2245 AC 02/05 IV 02/06 0044 0259 Tamsulosin HCl 0.4 MG DAILY 02/05 09 AC 02/05 PO 0909 Past History Medical History Neurological: dementia Cardiovascular: hypertension Renal: chronic kidney disease Surgical History Pertinent Surgical History: 1 Psychosocial History Where Do You Live? Assisted Living Who Do You Live With? spouse Smoking Status: Never Smoked ETOH Use: denies use Illicit Drug Use: denies illicit drug use Employment History Employment: Retired Review of Systems Review of Systems: PER HPI Exam & Diagnostic Data Vital Signs and I&O Vital Signs Date Time Temp Pulse Resp B/P B/P Pulse O2 O2 Flow FiO2 Mean Ox Delivery Rate 02/05 0805 97.9 68 18 129/74 96 Room Air 02/05 0802 97.9 68 18 129/74 96 Room Air 02/05 0612 97.6 20 147/70 94 Room Air 02/04 2253 94 18 148/78 93 Room Air 02/04 1559 95 Room Air Room Air 02/04 1558 68 18 137/63 95 Room Air Room Air Intake & Output 02/05 1600 02/05 0802/05 0000 02/04 1600 02/05 0800 02/04 0000 Intake Total 220 Output Total Balance 220 Intake, IV 100 Intake, Oral 120 Number 1 Bowel Movements Patient 195 lb Weight Weight Estimated Measurement Method Physical Exam: GEN- NAD, RESTING COMFORTABLY IN BED IN ER PSYCH- AAO TO PERSON ONLY RESP- SOME SLIGHT WHEEZES IN LEFT LUNG BASE CARAIC-RRR ABD- ND, SOFT, NT EXT- LEFT THIGHT IS SOFT, NO ECCHYMOSIS OR ERYTHEMA NOTED. MINIMALLY TENDER TO PALPATION OVER HIP. NO CALF TENDERNESS. DISTAL SENSATION INTACT. DISTAL MOTOR FUNCTION INTACT. 2+ DP PULSE. Last 24 Hours of Labs: Laboratory Tests 02/05 02/05 1797 2806 Chemistry Sodium (137 - 145 mmol/L) 139 Potassium (3.5 - 5.1 mmol/L) 4.1 Chloride (98 - 107 mmol/L) 106 Carbon Dioxide (22 - 30 mmol/L) 26 Anion Gap (5 - 16) 6 BUN (9 - 20 mg/dL) 27 H Creatinine (0.7 - 1.2 mg/dL) 1.1 Estimated GFR (>60 ml/min) > 60 BUN/Creatinine Ratio (7 - 25 %) 24.5 Hematology CBC w Diff NO MAN DIFF REQ WBC (4.8 - 10.8 /CUMM) 10.8 RBC (4.70 - 6.10 /CUMM) 5.28 Hgb (14.0 - 18.0 G/DL) 14.3 Hct (42 - 52 %) 42.4 MCV (80.0 - 94.0 FL) 80.4 MCH (27.0 - 31.0 PG) 27.0 MCHC (33.0 - 37.0 G/DL) 33.6 RDW (11.5 - 14.5 %) 13.8 Plt Count (130 - 400 /CUMM) 180 MPV (7.4 - 10.4 FL) 8.6 Gran % (42.2 - 75.2 %) 84.8 H Lymphocytes % (20.5 - 51.1 %) 8.0 L Monocytes % (1.7 - 9.3 %) 4.4 Eosinophils % (0 - 5 %) 2.7 Basophils % (0.0 - 2.0 %) 0.1 Absolute Granulocytes (1.4 - 6.5 /CUMM) 9.1 H Absolute Lymphocytes (1.2 - 3.4 /CUMM) 0.9 L Absolute Monocytes (0.10 - 0.60 /CUMM) 0.5 Absolute Eosinophils (0.0 - 0.7 /CUMM) 0.3 Absolute Basophils (0.0 - 0.2 /CUMM) 0 Urines Urine Color (YEL,AMB,STR) YEL Urine Clarity (CLEAR) HAZY H Urine pH (5.0 - 8.0) 7.5 Ur Specific [place] (1.001 - 1.035) 1.020 Urine Protein (NEG,<30 MG/DL) TRACE H Urine Ketones (NEG) TRACE H Urine Nitrite (NEG) NEG Urine Bilirubin (NEG) NEG Urine Urobilinogen (0.1 - 1.0 EU/dl) 1.0 Ur Leukocyte Esterase (NEG) NEG Ur Microscopic SEDIMENT EXAMINED Urine RBC (0 - 5 /HPF) >75 H Urine WBC (0 - 2 /HPF) 1-3 H Ur Epithelial Cells (NONE,FEW) OCCAS Urine Hemoglobin (NEG) LARGE H Urine Glucose (N MG/DL) NEG 02/04 1640 Chemistry Sodium (137 - 145 mmol/L) 139 Potassium (3.5 - 5.1 mmol/L) 4.2 Chloride (98 - 107 mmol/L) 103 Carbon Dioxide (22 - 30 mmol/L) 29 Anion Gap (5 - 16) 7 BUN (9 - 20 mg/dL) 23 H Creatinine (0.7 - 1.2 mg/dL) 1.0 Estimated GFR (>60 ml/min) > 60 BUN/Creatinine Ratio (7 - 25 %) 23.0 Glucose (65 - 99 mg/dL) 98 Calcium (8.4 - 10.2 mg/dL) 8.9 Magnesium (1.6 - 2.3 mg/dL) 2.0 Total Bilirubin (0.2 - 1.3 mg/dL) 0.5 AST (17 - 59 U/L) 23 ALT (21 - 72 U/L) 33 Alkaline Phosphatase (< 127 U/L) 86 Creatine Kinase (55 - 170 U/L) 43 L Troponin I (<0.11 ng/ml) 0.03 Total Protein (6.3 - 8.2 g/dL) 6.6 Albumin (3.5 - 5.0 g/dL) 3.8 Globulin (1.9 - 4.2 gm/dL) 2.8 Albumin/Globulin Ratio (1.1 - 2.2 %) 1.4 TSH &T3 &Free T4 Intrp (0.27 - 4.20 uIU/mL) 1.450 Coagulation PT (9.4 - 12.5 SEC) 12.2 INR (0.90 - 1.17) 1.12 APTT (25 - 37 SEC) 30 Hematology CBC w Diff NO MAN DIFF REQ WBC (4.8 - 10.8 /CUMM) 5.9 RBC (4.70 - 6.10 /CUMM) 5.51 Hgb (14.0 - 18.0 G/DL) 14.7 Hct (42 - 52 %) 44.7 MCV (80.0 - 94.0 FL) 81.1 MCH (27.0 - 31.0 PG) 26.6 L MCHC (33.0 - 37.0 G/DL) 32.8 L RDW (11.5 - 14.5 %) 13.7 Plt Count (130 - 400 /CUMM) 187 MPV (7.4 - 10.4 FL) 8.6 Gran % (42.2 - 75.2 %) 79.5 H Lymphocytes % (20.5 - 51.1 %) 12.6 L Monocytes % (1.7 - 9.3 %) 5.7 Eosinophils % (0 - 5 %) 2.2 Basophils % (0.0 - 2.0 %) 0 Absolute Granulocytes (1.4 - 6.5 /CUMM) 4.7 Absolute Lymphocytes (1.2 - 3.4 /CUMM) 0.7 L Absolute Monocytes (0.10 - 0.60 /CUMM) 0.3 Absolute Eosinophils (0.0 - 0.7 /CUMM) 0.1 Absolute Basophils (0.0 - 0.2 /CUMM) 0 Imaging Results: LEFT HIP X-RAY SHOWS SUBTLE LEFT FEMORAL NECK FRACTURE WITH MINIMAL DISPLACEMENT Assessment/Plan Assessment/Plan 88yo M with hx or htn and dementia that lives at assisted living facility now SP unwitnessed fall with Left femoral neck fracture. Awaiting medical clearence for surgery Possibly to OR tonight for ORIF of Left hip (pinning) NPO gentle IVF for hydration Ice to fracture site best rest dvt ppx- alps and hepsq ok pain management, try to limit narcotics Dr. Zaldivar to speak with pt DAVION, his daughter Sadaf. Consult Acknowledgment - Thank you for your consult request.
[2018-02-05 16:30] VITALS: BP 132/78
[2018-02-05 20:45] VITALS: BP 120/80
--- NOTE | 2018-02-06 06:43 | PN- Housestaff ---
Dago Estrella 02/06/18 0643: Subjective Follow-up For: s/p mechanical fall and left femoral neck fracture s/p repair with multiple cannulated screws Subjective: He went to the OR in the morning. Pt was seen and examined after his return. He was confused, though not more than his baseline dementia. He reported no pain at the time. Non-erythematous Scrotal edema noted, pt stated he felt no pain. blood noted around the urethra with the diamond. Blood-tinged urine noted. He did have a traumatic diamond insertion in the ED. Scrotum was elevated. Will continue to monitor. Review of Systems Constitutional: Reports: see HPI. Objective Last 24 Hrs of Vital Signs/I&O Vital Signs Date Time Temp Pulse Resp B/P B/P Pulse O2 O2 Flow FiO2 Mean Ox Delivery Rate 02/06 1103 70 130/76 02/06 0709 99.5 72 20 100/58 94 Room Air 02/05 2045 99.3 76 18 120/80 96 Room Air 02/05 1630 98.2 72 18 132/78 99 Room Air 02/05 1630 98.2 72 18 132/78 96 Room Air Intake & Output 02/06 1600 02/06 0800 02/06 0000 Intake Total 600 300 Output Total 300 300 Balance 300 0 Intake, IV 600 300 Intake, Oral 0 0 Output, Urine 300 300 Physical Exam General Appearance: No Acute Distress, Arousable, though sleepy. HEENT: Atraumatic Neck: Supple Cardiovascular: Regular Rate, Normal S1, Normal S2 Lungs: Clear to Auscultation, Normal Air Movement Abdomen: Normal Bowel Sounds, Soft, No Tenderness Reproductive (MALE) Noted scrotal edema, nonpainful, nonerythematous. Testicles were not palpable. Current Medications: Current Medications Sig/Mame Start time Last Medication Dose Route Stop Time Status Admin Acetaminophen 650 MG Q6P PRN 02/04 2230 AC PO Acetaminophen 1,000 MG Q6P PRN 02/04 2230 AC 02/05 IV 1435 Apixaban 2.5 MG BID 02/07 2100 AC PO Cefazolin Sodium 2 GM IQ8 02/06 1600 AC N/A 1 UNIT IV 02/07 0029 Celecoxib 200 MG BID PRN 02/06 1415 UNVr PO Donepezil HCl 10 MG DAILY 02/05 0900 AC 02/06 PO 1103 Escitalopram Oxalate 10 MG DAILY 02/05 0900 AC 02/06 PO 1104 Fentanyl Citrate 0 .STK-MED ONE 02/06 0712 DC .ROUTE Heparin Sodium 5,000 UNIT Q8 02/05 0600 DC 02/06 (Porcine) SC 0536 Memantine 10 MG BID 02/05 0900 AC 02/06 PO 1103 Oxybutynin Chloride 5 MG TID 02/05 09 AC 02/06 PO 1329 Oxycodone/ 1 TAB Q6P PRN 02/04 2230 AC Acetaminophen PO Potassium Chloride 20 MEQ Q13H 02/05 0930 AC 02/06 Dextrose/Sodium 1,000 ML IV 1148 Chloride Sodium Chloride 1,000 ML Q13H 02/04 2245 DC 02/05 IV 02/06 0044 0259 Tamsulosin HCl 0.4 MG DAILY 02/05 09 AC 02/06 PO 1103 Last 24 Hrs of Lab/Calvin Results Last 24 Hrs of Labs/Mics: Laboratory Tests 02/06/18 0705: Anion Gap 6, Estimated GFR > 60, BUN/Creatinine Ratio 21.0, CBC w Diff NO MAN DIFF REQ, RBC 5.03, MCV 80.9, MCH 27.2, MCHC 33.6, RDW 13.5, MPV 8.6, Gran % 79.1 H, Lymphocytes % 8.8 L, Monocytes % 6.6, Eosinophils % 5.5 H, Basophils % 0, Absolute Granulocytes 6.5, Absolute Lymphocytes 0.7 L, Absolute Monocytes 0.5, Absolute Eosinophils 0.5, Absolute Basophils 0 Assessment/Plan Assessment: 88 y/o M with PMH HTN and dementia presenting s/p unwitnessed fall earlier today. Patient's heard a noise and found the patient on the floor, she reported no LOC. They live in an assisted living facility. He is not on anticoagulation. Patient was complaining of head pain and left hip pain post fall. Imaging shows left femoral neck fracture. Head CT shows no acute intracranial pathology. Pt was admitted for further care of: #Left femoral neck fracture s/p left repair with multiple cannulated screws -Patient went to the OR this morning. Patient is currently NAD. -IV tylenol and percocet, celebrex depending on pain level. Avoid narcotics. -Daughter is POA. #Scrotal edema, new onset Likely related to a traumatic diamond insertion, blood around meatus with blood tinged urine. No clots seen. Nontender, though patient is receiving pain medications. Will continue to monitor and see evolution. -Scrotal elevation -Continue to monitor -Stat CT for p/b incarcerated hernia, GS consulted FULL CODE REG DIET DVT PPX ALPS, on elliquis Problem List: 1. Closed left hip fracture Pain Ratin (not assessed, post surgery) Pain Location: L hip Pain Goal: Pain 4 or less Pain Plan: as indicated Tomorrow's Labs & Rationales: CBC, BEP Blu MCCRAY,Arsenio 02/06/18 1738: Attending MD Review Statement Attending Statement Attending MD Statement: examined this patient, discuss w/resident/PA/TUNNEL HEADING INSPECTOR, agreed w/resident/PA/TUNNEL HEADING INSPECTOR, discussed with family, reviewed EMR data (avail), discussed with nursing, discussed with case mgmt, amended to note Attending Assessment/Plan: The patient was seen post operatively after arriving back on floor. Is complaining of scrotal swelling and pain since in PACU. Family also noted low grade fever. exam shows some blood around meatus (had some difficulty inserting diamond yesterday as per daughter). Scrotum is tender with right sided swelling- has known hernia and concern regarding incarcerated hernia. Will obtain stat CT of pelvis and surgical consult called to evaluate for hernia. Hydroceole/hematoma less likely. Will also send repeat U/A & C&S. The patient is receiving bess-operative Cefazolin.
[2018-02-06 07:09] VITALS: BP 100/58
[2018-02-06 08:08] LABS: ABSOLUTE BASOPHIL COUNT 0 /CUMM (0.0-0.2); ABSOLUTE EOSINOPHIL COUNT 0.5 /CUMM (0.0-0.7); ABSOLUTE GRANULOCYTE CT 6.5 /CUMM (1.4-6.5); ABSOLUTE LYMPH COUNT 0.7 /CUMM (1.2-3.4); ABSOLUTE MONOCYTE COUNT 0.5 /CUMM (0.10-0.60); BASOPHIL % 0 % (0.0-2.0); EOSINOPHIL % 5.5 % (0-5); GRANULOCYTE % 79.1 % (42.2-75.2); HEMATOCRIT 40.7 % (42-52); MEAN CORPUSCULAR HGB 27.2 PG (27.0-31.0); MEAN CORPUSCULAR HGB CONC 33.6 G/DL (33.0-37.0); MEAN CORPUSCULAR VOLUME 80.9 FL (80.0-94.0); MEAN PLATELET VOLUME 8.6 FL (7.4-10.4); PLATELET COUNT 138 /CUMM (130-400); RBC DISTRIBUTION WIDTH 13.5 % (11.5-14.5); RED BLOOD CELL CT 5.03 /CUMM (4.70-6.10); WHITE BLOOD CELL COUNT 8.2 /CUMM (4.8-10.8)
--- NOTE | 2018-02-06 09:14 | Discharge Summary ---
Visit Information Visit Dates Admission Date: 02/04/18 Discharge Date: 02/08/18 Hospital Course Course Attending Physician: Arsenio Hurt MD Primary Care Physician: Flaco Goldman MD Consulting Request: 1 Consulting Specialty: Orthopedics Consulting Physician: Dr. Zladivar Consulting Request: 2 Consulting Specialty: General Surgery Consulting Physician: Dr. iMchel Hospital Course: Patient is an 88 y/o male with past medical history significant for advanced dementia, depression, BPH is brought in by ambulance to the hospital after unwitnessed fall. Vitals afebrile, heart rate 68, respiratory rate 18, blood pressure 137/63, saturating at 95 on room air WBC 5.9 H/H 14.7/44.7 Plt 187 Na 139 K4.2 BUN/Cr 23/1.0 TSH WNL LFTs WNL XR left hip: Subtle left femoral neck fracture. CT chest/abd/pelv: no acute disease process CT head/ C-spine: No acute intracranial abnormality. - There is similar global cerebral volume loss with a temporal lobe predominance and there is also moderate to severe lateral and third ventriculomegaly that is disproportionate to sulcal prominence which should be correlated for clinical signs of normal pressure hydrocephalus. - No acute osseous abnormality within the cervical spine. Moderate to severe cervical spondylosis. - Similar appearing partially imaged complete opacification of the left maxillary sinus with central high density material that may reflect inspissated secretions or the sequela of allergic fungal sinusitis. There is stable depression of the left orbital floor and lateralization of the left uncinate process suggesting a component of underlying silent sinus syndrome. ENT consultation and dedicated maxillofacial CT recommended for further assessment. Patient was admitted for management of the followin. Unwitnessed fall 2. Acute Left Femoral Neck Fracture S/P Pinning 3. Scrotal Swelling and Pain 2/2 Inguinal Hernia 4. H/O Dementia, Depression, BPH Patient presented after an unwitnessed fall which was likely mechanical in nature. Imaging revealed a left femoral neck fracture. Patient was evaluated by orthopedics for hip surgery. A preoperative evaluation was preformed. Patient had an RCRI of 0.4%. Patient underwent a hip pinning with multiple cannulated screws. During the admission patient was found to have scrotal swelling and pain. There was initial concern for strangulated hernia. Surgery was consulted and a stat CT Abd/Pelvis revealed bilateral inguinal hernias with the dome of the collapsed bladder pulled into the right inguinal hernia. Surgical management was deferred as patient's pain improved and evidence of incarceration/hernia were not seen on imaging. Patient was evaluated by PT for STR. Patient was started on eliquis for DVT prophylaxis per ortho. - Patient to continue eliquis and follow up with orthopedics - If patient's scrotal pain/swelling recur he should follow up with surgery Allergies: Coded Allergies: No Known Allergies (01/01/17) Significant Procedures: PATIENT CARE UNIT CONFIDENTIAL COPY Operative/Inv Procedure Report Surgery Date: 02/06/18 Name of Procedure: Repair left femoral neck fracture with multiple cannulated screws. Pre-Operative Diagnosis: Left impacted femoral neck fracture. Post-Operative Diagnosis: Same. Estimated Blood Loss: 50ml to 100ml Surgeon/Poultry Farm Laborer: Jeremiah Zaldivar M.D. / None Anesthesia: laryngeal mask airway Monitors: EKG/blood pressure/oxygen saturation. IV Fluids: 800 cc crystalloid. Implants: Curlew 6.5 mm x 105 mm partially-threaded cancellus screws 3. Urine Output: 60 cc. Drains: None. Specimens: None. Microbiology: None. Tourniquet: None. Complications: None known. Condition: Stable. Operative Indication: The patient is an 88-year-old assisted living care facility male patient with dementia who sustained a fall yesterday morning at his residence. This was an unwitnessed fall but seems to have likely occurred when he tried to get up and out of bed. He was brought to the [facility] emergency room. He underwent multiple imaging and evaluation based upon the mechanism of injury and the unwitnessed fall. It was ultimately determined by CAT scan and possibly subtly on x-ray that he had sustained an impacted valgus femoral neck fracture. The patient was admitted to the medical service. He was evaluated medically and determined to be of age-appropriate and comorbidity appropriate risk for surgical stabilization of his left hip fracture. I subsequently contacted the patient's daughter who is acting as his power of tax attorney. We did discuss the risks and benefits and expected outcomes of nonoperative management of the fracture with avoidance of weightbearing on the left lower extremity and restricted weightbearing in a wheelchair. We did also discuss the same with respect to stabilization of the femoral neck fracture with multiple cannulated screws with the hopes of helping to prevent displacement of the fracture which would then almost certainly necessitate operative intervention with a larger surgery (hip hemiarthroplasty). After discussing these issues and answering all questions the patient's daughter (power of tax attorney) did wish for me to proceed with surgery on the patient and surgical consent was obtained. Operative/Procedure Note Note: The patient was brought to the operating room on his hospital bed. General anesthesia via LMA was also induced on the hospital bed. Once the patient was anesthetized he was transferred to the OR fracture table. He was given a dose of IV antibiotics for infection prophylaxis. The patient was positioned on the fracture table with the peritoneum down against a well-padded perineal post making sure to avoid injury to the scrotum and testicles. The ipsilateral affected left lower extremity was placed into a padded boot which was overwrapped with Coban wrap for friction and then placed into the traction boot attachment to the fracture table and secured in standard fashion. The contralateral right lower extremity "well leg" was positioned in 2 flexion, abduction, and some external rotation through the hip and supported with a well padded well leg norman under the right leg. 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 Bony prominence where possible were also well- padded elsewhere. Contralateral right lower extremity was also placed into a calf compression sleeve to minimize venous pooling and hopefully cut down the risk of blood clot formation and propagation. The ipsilateral left upper extremity was pulled across his chest and secured after padding the extremity well. The left lower extremity was then prepped and draped in the usual sterile fashion for left hip repair surgery. The skin at the lateral hip and lateral upper thigh were marked with a skin marker. The C-arm was brought in and we did confirm that we could image the hip adequately though admittedly with difficulty and slightly suboptimal visualization. We next used the C-arm to help localize the level of the base of the flare of the greater trochanter by placing a Berry elevator anteriorly. This was adjusted until he was satisfied with localization of this level on the bone and then the skin externally was marked at the same level to correlate for this. We next marked the skin for a longitudinal skin incision factoring in desire to start advancing the cannulated screws up into the lateral hip at the level of the base of the flare of the greater trochanter. After the skin was marked a sharp dissection down to bone was created with scalpel's. Retractors were placed into the wound. A Berry elevator was used to scrape the vastus lateralis off of the proximal femur laterally and the base of the greater trochanter for visualization. Retractors were placed anteriorly and posteriorly to retract the soft tissues. We next used the cannulated multiple parallel pin guide to help place the initial guidepin for 1 of the anticipated 3 partially threaded cannulated screws. This was located most inferiorly and directed in an inferolateral to superomedial direction coming up along the calcar at the base of the femoral neck and coming up low in the femoral neck on AP view of the hip. In the lateral view this was repositioned once so that the pain would be essentially coming up along the center axis of the femoral neck in the sagittal plane. This pin was directed up into the femoral head crossing the fracture site at the upper femoral neck and advanced just about up to the level of the subchondral bone of the femoral head. We checked positioning of this initial guidepin for position and length in both AP and lateral fluoroscopic projections. Once we were satisfied with positioning of the initial guidepin we used the parallel pin guide to place 2 additional parallel K wires, one somewhat superior and anterior and the other somewhat superior and posterior with respect to the initial guidepin for the first screw up into the femoral head and neck. Appropriate pain length and position within the femoral neck crossing the femoral neck fracture site into the femoral head with the pin tips just about up to the level of subchondral bone were confirmed in both AP and lateral fluoroscopic positions. We were now satisfied with the positioning for the 3 K wires for placement of the cannulated screws. We took depth gauge measurements over each of the K wires and determined to go with screw lengths of 105 mm for all 3 screws. Again these were 6.5 mm partially threaded screws all of 105 mm length. The cannulated drill was run over the guidepin to break the lateral femoral cortical bone. The screws themselves were self drilling and self- tapping and were easy to advance with a combination of power and then completing advancement of the cannulated screw for each of the 3 screws manually with a screwdriver. Once the screws were advanced down so that the heads were impinging on the lateral femoral cortical bone we had determined that the screws have been placed as deeply as possible. We checked screw length and positioning in both AP and lateral fluoroscopic projections and we were satisfied with the same. We removed the K wires for placement of the cannulated screws and took final AP and lateral fluoroscopic images of the hip showing maintained fracture reduction and showing acceptable hardware position and fixation of all 3 partially threaded cannulated screws to have been achieved. These images were taken and saved for hard copy. Attention was now directed to closure. The wound was copiously irrigated multiple times. The vastus lateralis muscle tissue was allowed to fall back into normal position. The tissues were irrigated again. The fascia ricardo was repaired using 0 Vicryl placed in interrupted simple fashion. The soft tissues were irrigated again. The deep subcutaneous tissues were repaired using 0 Vicryl placed in an interrupted simple buried fashion sutures. The more superficial subcutaneous tissues were approximated using 2-0 Vicryl also placed in simple interrupted buried fashion. The skin margins were then approximated using a skin stapler. The wound was washed and dried. Adaptic dressing was placed over the staple line followed by sterile gauze dressings and an abdominal pad which was held in place with paper tape. The center board for the fracture table was returned and locked onto the table. The ipsilateral left leg was taken down from the traction boot and removed from the padded boot as well. The contralateral "well leg" was taken down from the well leg support and returned to the supine extended position as well. The patient was awakened from general anesthesia. He was transferred back to his hospital bed and then brought to the recovery room in stable condition having tolerated the procedure well. DICTATED BY: Jeremiah Zaldivar MD Pertinent Lab Results: SERVICE DATE: 02/04/18 EXAM TYPE: CAT - CT ABD & PELVIS W/O IV CONTRAS; CT CHEST WO IV CONTRAST Addendum: Upon further review there does appear to be a nondisplaced transverse fracture through the left femoral neck. Addendum Signed by: Krzysztof Rob MD 02/04/182120 EXAMINATION: CT CHEST, ABDOMEN AND PELVIS WITHOUT CONTRAST CLINICAL INFORMATION: Fall. Bilateral rib pain. Bilateral hip pain. Pelvic pain. COMPARISON: None. TECHNIQUE: Multidetector volumetric CT imaging of the chest, abdomen and pelvis was obtained without oral or intravenous contrast. Coronal and sagittal reformatted images are performed at the CT scanner. DLP: 1293.88 mGy-cm. FINDINGS: The patient was imaged with the arms at the side. This does cause streak artifact for the study. CT CHEST: LUNGS: There is a small linear reticular opacity in the subpleural lung at the right upper lobe posteriorly, image 11 (3) likely linear scarring. There is also linear opacities of scarring and/or subsegmental atelectasis at the left lung base. The left diaphragm is asymmetrically elevated. No focal consolidation. The central bronchial airways are open. MEDIASTINUM: No mediastinal mass or significant lymphadenopathy. There are vascular wall calcifications of aortic arch. PLEURA: There is no pleural effusion. No pleural mass or thickening. AXILLA: No lymphadenopathy. CT ABDOMEN AND PELVIS: LIVER, GALLBLADDER, AND BILIARY TREE: There is a 3 cm cyst in the left lobe of the liver. No suspicious liver lesions. No intrahepatic bile duct dilatation. The gallbladder is unremarkable with no evidence of radiopaque gallstones, gallbladder wall thickening, or obvious pericholecystic inflammatory changes. PANCREAS: No acute change of the pancreas. No mass. No pancreatic duct dilatation. SPLEEN: Spleen normal in size and contour. No focal lesion. ADRENAL GLANDS: Adrenal glands are normal in size. No focal mass. KIDNEYS AND URETERS: There are multiple bilateral renal cysts. There is no calculus or hydronephrosis. BLADDER: Though bladder has not herniating the dome of the bladder does extend toward the right inguinal hernia. GASTROINTESTINAL TRACT: There is diverticulosis of the colon. The diverticula are most numerous at the sigmoid. There is no diverticulitis. No bowel wall thickening or edema. The appendix is not seen. There is no inflammation of the mesentery. The small bowel loops are unremarkable. MESENTERY: No focal inflammation. No free fluid. No free air. ABDOMINAL WALL: There are fat-containing bilateral inguinal hernias. These measure 6 x 4 cm on the left and 4 x 5 cm on the right. LYMPH NODES: Normal. VASCULAR: There are scattered vascular wall calcifications of the aorta and iliac arteries without aneurysm. PELVIC VISCERA: Unremarkable. OSSEOUS STRUCTURES: There is no acute abnormality. No fracture. Degenerative spondylosis of the spine with multilevel endplate spurring of the vertebrae, disc height narrowing and facet joint arthrosis. There is degenerative spurring of femoral head and acetabula of both hips with mild joint space narrowing but no erosion. IMPRESSION: No acute abnormality of the chest, abdomen or pelvis. SERVICE DATE: 02/04/18 EXAM TYPE: CAT - CT CERV SPINE WO IV CONTRAST; CT HEAD WO IV CONTRAST CT HEAD WITHOUT IV CONTRAST CT CERVICAL SPINE WITHOUT IV CONTRAST INDICATION: Unwitnessed fall. Head strike. COMPARISON: Head CT 01/01/2017. TECHNIQUE: Multidetector CT acquisitions of the head and cervical spine were obtained without IV contrast. Multiplanar reformats were acquired and utilized for image interpretation. FINDINGS: HEAD: There is global cerebral volume loss with a temporal lobe predominance and there is also moderate to severe lateral and third ventriculomegaly that is disproportionate to sulcal prominence which should be correlated for clinical signs of normal pressure hydrocephalus. There is no intracranial hemorrhage, hydrocephalus, extra-axial surface collection, midline shift, or other herniation pattern. Shen to white matter differentiation is diffusely maintained without evidence of an evolved acute territorial infarct. The basilar cisterns are preserved. No significant soft tissue abnormality. Similar appearing partially imaged complete opacification of the left maxillary sinus with central high density material that may reflect inspissated secretions or the sequela of allergic fungal sinusitis. There is stable depression of the left orbital floor and lateralization of the left uncinate process suggesting a component of underlying silent sinus syndrome. ENT consultation and dedicated maxillofacial CT recommended for further assessment. CERVICAL SPINE: Mild anterior degenerative subluxation of C7 on T1. Cervical alignment is otherwise maintained. Moderate to severe disc volume loss at all cervical levels with the exception of C3-C4 and C7-T1. Multilevel endplate osteophytes. Hypertrophic degenerative changes involving the atlantodental interval. There is no acute fracture and there is no acute subluxation. The craniocervical and atlantoaxial articulations are normal. There is no prevertebral soft tissue swelling. No significant soft tissue abnormality within the neck. The visualized lung apices are clear. IMPRESSION: - No acute intracranial abnormality. - There is similar global cerebral volume loss with a temporal lobe predominance and there is also moderate to severe lateral and third ventriculomegaly that is disproportionate to sulcal prominence which should be correlated for clinical signs of normal pressure hydrocephalus. - No acute osseous abnormality within the cervical spine. Moderate to severe cervical spondylosis. - Similar appearing partially imaged complete opacification of the left maxillary sinus with central high density material that may reflect inspissated secretions or the sequela of allergic fungal sinusitis. There is stable depression of the left orbital floor and lateralization of the left uncinate process suggesting a component of underlying silent sinus syndrome. ENT consultation and dedicated maxillofacial CT recommended for further assessment. SERVICE DATE: 02/04/18 EXAM TYPE: RAD - XRY-FEMUR, LEFT 2 VIEWS; XRY-HIP 2-3 VIEWS, LEFT EXAMINATION: XR HIP, LEFT XR FEMUR, LEFT CLINICAL INFORMATION: Fall with question of fracture. COMPARISON: CT abdomen and pelvis 11/25/[address] abdomen and pelvis earlier today. TECHNIQUE: Three views of the left hip. FINDINGS: HIP: There is a subtle fracture involving the left femoral neck proximally with minimal displacement. In retrospect, this can be seen on the CT scan performed earlier in the evening on the sagittal and coronal reconstructions (see perez images). No other fractures are seen. FEMUR: The remainder of the femur is unremarkable. Degenerative changes are present in the knee. IMPRESSION: Subtle left femoral neck fracture. This result was discussed with Dr. Laith Mata at 9:30 PM on the day of the exam and it was ascertained that the content of the report was understood at the time of direct communication. SERVICE DATE: 02/06/18- EXAM TYPE: RAD - XRY-ORTHOPEDIC EXTREMITY OR EXAMINATION: HIP LEFT IN THE OR CLINICAL INFORMATION: Left hip pinning. COMPARISON: Preoperative x-rays 02/04/2018.. TECHNIQUE: 40 intraprocedural images of the left hip were obtained during the procedure. FINDINGS: The intraoperative images demonstrate placement of 3 impression screws across the left femoral neck. Number of images: 40. Fluoroscopy time: 1 minute. IMPRESSION: 1. Multiple intraoperative views of the left hip were obtained during placement of 3 compression screws. 2. Please see operative notes for further details. Disposition Summary Disposition Principal Diagnosis: Left Femoral Neck Fracture S/P Left Hip Pinning Additional Diagnosis: Right Inguinal Hernia Continaing Dome of Bladder Discharge Disposition: SNF Discharge Instructions General Discharge Information Code Status: Full Code Patient's Diet: Mechanical Ground and Thin Liquids Patient's Activity: Assist of 2, As Tolerated, Partial Weightbearing to Left Lower Extremity Follow-Up Instructions/Appts: Follow up with Dr. Zaldivar (orthopedic) Follow up with Dr. Michel (surgery) Follow up with your primary care physician Patient was started on Eliquis for prophylaxis per ortho. Medications at Discharge Discharge Medications: Stop taking the following medications: Moxifloxacin HCl (Avelox) 400 MG TABLET ORAL DAILY Qty = 7 Continue taking these medications: Cetirizine HCl (Zyrtec) 10 MG TABLET 1 Tablet ORAL Every night Donepezil HCl (Aricept) 10 MG TABLET 1 Tablet ORAL DAILY Oxybutynin Chloride (Ditropan XL) 15 MG TAB.ER.24 1 Tablet ORAL DAILY Memantine HCl (Namenda) 10 MG TABLET 1 Tablet ORAL TWICE DAILY Tamsulosin HCl (Flomax) 0.4 MG CAP.ER.24H 1 Capsule ORAL DAILY Aspirin (Aspirin*) 81 MG TAB.CHEW 1 Tablet ORAL DAILY Escitalopram Oxalate (Lexapro) 10 MG TABLET 1 Tablet ORAL DAILY Start taking the following new medications: Apixaban (Eliquis) 2.5 MG TABLET 1 Tablet ORAL TWICE DAILY Qty = 60 No Refills Instructions: Please take 1 tab in AM and 1 tab in PM Follow up with orthopedic Copies To: Susi MCCRAY,Flaco Redd Attending MD Review Statement Documenting Attending: Arsenio Hurt MD Other Findings: Agree with the above summary of care and plan of care upon discharge (to STR).
--- NOTE | 2018-02-06 09:23 | Operative Report ---
Operative/Inv Procedure Report Surgery Date: 02/06/18 Name of Procedure: Repair left femoral neck fracture with multiple cannulated screws. Pre-Operative Diagnosis: Left impacted femoral neck fracture. Post-Operative Diagnosis: Same. Estimated Blood Loss: 50ml to 100ml Surgeon/Cost Recovery Technician: Jeremiah Zaldivar M.D. / None Anesthesia: laryngeal mask airway Monitors: EKG/blood pressure/oxygen saturation. IV Fluids: 800 cc crystalloid. Implants: Nic 6.5 mm x 105 mm partially-threaded cancellus screws 3. Urine Output: 60 cc. Drains: None. Specimens: None. Microbiology: None. Tourniquet: None. Complications: None known. Condition: Stable. Operative Indication: The patient is an 88-year-old assisted living care facility male patient with dementia who sustained a fall yesterday morning at his residence. This was an unwitnessed fall but seems to have likely occurred when he tried to get up and out of bed. He was brought to the [facility] emergency room. He underwent multiple imaging and evaluation based upon the mechanism of injury and the unwitnessed fall. It was ultimately determined by CAT scan and possibly subtly on x-ray that he had sustained an impacted valgus femoral neck fracture. The patient was admitted to the medical service. He was evaluated medically and determined to be of age-appropriate and comorbidity appropriate risk for surgical stabilization of his left hip fracture. I subsequently contacted the patient's daughter who is acting as his power of gear cutting machine operator. We did discuss the risks and benefits and expected outcomes of nonoperative management of the fracture with avoidance of weightbearing on the left lower extremity and restricted weightbearing in a wheelchair. We did also discuss the same with respect to stabilization of the femoral neck fracture with multiple cannulated screws with the hopes of helping to prevent displacement of the fracture which would then almost certainly necessitate operative intervention with a larger surgery (hip hemiarthroplasty). After discussing these issues and answering all questions the patient's daughter (power of gear cutting machine operator) did wish for me to proceed with surgery on the patient and surgical consent was obtained. Operative/Procedure Note Note: The patient was brought to the operating room on his hospital bed. General anesthesia via LMA was also induced on the hospital bed. Once the patient was anesthetized he was transferred to the OR fracture table. He was given a dose of IV antibiotics for infection prophylaxis. The patient was positioned on the fracture table with the peritoneum down against a well-padded perineal post making sure to avoid injury to the scrotum and testicles. The ipsilateral affected left lower extremity was placed into a padded boot which was overwrapped with Coban wrap for friction and then placed into the traction boot attachment to the fracture table and secured in standard fashion. The contralateral right lower extremity "well leg" was positioned in 2 flexion, abduction, and some external rotation through the hip and supported with a well padded well leg norman under the right leg. 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 Bony prominence where possible were also well- padded elsewhere. Contralateral right lower extremity was also placed into a calf compression sleeve to minimize venous pooling and hopefully cut down the risk of blood clot formation and propagation. The ipsilateral left upper extremity was pulled across his chest and secured after padding the extremity well. The left lower extremity was then prepped and draped in the usual sterile fashion for left hip repair surgery. The skin at the lateral hip and lateral upper thigh were marked with a skin marker. The C-arm was brought in and we did confirm that we could image the hip adequately though admittedly with difficulty and slightly suboptimal visualization. We next used the C-arm to help localize the level of the base of the flare of the greater trochanter by placing a Berry elevator anteriorly. This was adjusted until he was satisfied with localization of this level on the bone and then the skin externally was marked at the same level to correlate for this. We next marked the skin for a longitudinal skin incision factoring in desire to start advancing the cannulated screws up into the lateral hip at the level of the base of the flare of the greater trochanter. After the skin was marked a sharp dissection down to bone was created with scalpel's. Retractors were placed into the wound. A Berry elevator was used to scrape the vastus lateralis off of the proximal femur laterally and the base of the greater trochanter for visualization. Retractors were placed anteriorly and posteriorly to retract the soft tissues. We next used the cannulated multiple parallel pin guide to help place the initial guidepin for 1 of the anticipated 3 partially threaded cannulated screws. This was located most inferiorly and directed in an inferolateral to superomedial direction coming up along the calcar at the base of the femoral neck and coming up low in the femoral neck on AP view of the hip. In the lateral view this was repositioned once so that the pain would be essentially coming up along the center axis of the femoral neck in the sagittal plane. This pin was directed up into the femoral head crossing the fracture site at the upper femoral neck and advanced just about up to the level of the subchondral bone of the femoral head. We checked positioning of this initial guidepin for position and length in both AP and lateral fluoroscopic projections. Once we were satisfied with positioning of the initial guidepin we used the parallel pin guide to place 2 additional parallel K wires, one somewhat superior and anterior and the other somewhat superior and posterior with respect to the initial guidepin for the first screw up into the femoral head and neck. Appropriate pain length and position within the femoral neck crossing the femoral neck fracture site into the femoral head with the pin tips just about up to the level of subchondral bone were confirmed in both AP and lateral fluoroscopic positions. We were now satisfied with the positioning for the 3 K wires for placement of the cannulated screws. We took depth gauge measurements over each of the K wires and determined to go with screw lengths of 105 mm for all 3 screws. Again these were 6.5 mm partially threaded screws all of 105 mm length. The cannulated drill was run over the guidepin to break the lateral femoral cortical bone. The screws themselves were self drilling and self- tapping and were easy to advance with a combination of power and then completing advancement of the cannulated screw for each of the 3 screws manually with a screwdriver. Once the screws were advanced down so that the heads were impinging on the lateral femoral cortical bone we had determined that the screws have been placed as deeply as possible. We checked screw length and positioning in both AP and lateral fluoroscopic projections and we were satisfied with the same. We removed the K wires for placement of the cannulated screws and took final AP and lateral fluoroscopic images of the hip showing maintained fracture reduction and showing acceptable hardware position and fixation of all 3 partially threaded cannulated screws to have been achieved. These images were taken and saved for hard copy. Attention was now directed to closure. The wound was copiously irrigated multiple times. The vastus lateralis muscle tissue was allowed to fall back into normal position. The tissues were irrigated again. The fascia ricardo was repaired using 0 Vicryl placed in interrupted simple fashion. The soft tissues were irrigated again. The deep subcutaneous tissues were repaired using 0 Vicryl placed in an interrupted simple buried fashion sutures. The more superficial subcutaneous tissues were approximated using 2-0 Vicryl also placed in simple interrupted buried fashion. The skin margins were then approximated using a skin stapler. The wound was washed and dried. Adaptic dressing was placed over the staple line followed by sterile gauze dressings and an abdominal pad which was held in place with paper tape. The center board for the fracture table was returned and locked onto the table. The ipsilateral left leg was taken down from the traction boot and removed from the padded boot as well. The contralateral "well leg" was taken down from the well leg support and returned to the supine extended position as well. The patient was awakened from general anesthesia. He was transferred back to his hospital bed and then brought to the recovery room in stable condition having tolerated the procedure well.
--- NOTE | 2018-02-06 09:56 | RADIOLOGY REPORT ---
EXAMINATION: HIP LEFT IN THE OR CLINICAL INFORMATION: Left hip pinning. COMPARISON: Preoperative x-rays 02/04/2018.. TECHNIQUE: 40 intraprocedural images of the left hip were obtained during the procedure. FINDINGS: The intraoperative images demonstrate placement of 3 impression screws across the left femoral neck. Number of images: 40. Fluoroscopy time: 1 minute. IMPRESSION: 1. Multiple intraoperative views of the left hip were obtained during placement of 3 compression screws. 2. Please see operative notes for further details.
[2018-02-06 10:40] VITALS: BP 130/76
--- NOTE | 2018-02-06 15:33 | PN- Student ---
Ayanna Paiz 02/06/18 7839: Subjective Subjective: Pt denies being in any pain at this time. Patient's son in the room stating the noticed the patient felt warm. They deny noticing him to be in any pain. Has not gotten out of bed yet. Has not had a bowel movement. Denies any CP, SOB, difficulty breathing, dizziness, nausea or vomiting. Objective Objective: Physical Exam: Vitals: See EMR. Temperature noted to be 100.8 General: [place] male, lying in bed, NAD, confused, lethargic but arousable. Diamond in place. Warm to the touch. Cardio: Regular rate and rhythm. S1 and S2 heard with no murmurs rubs. Pulm: Breath sounds heard in anterior and posterior lung jang. Abdomen: Normoactive bowel sounds, soft, non-tender, non-distended. : Scrotal edema is noted with blood at the insertion site of the diamond. Urine in diamond is yesica colored. Extremities: Dressing clean dry and intact on the left hip. Ice pack is in place over dressing. Gross sensation is intact and equal. Gross motor function is intact. Pt not able to follow commands to plantar or dorsiflex. Dorsalis pedis and posterior tibialis pulses are palpable bilaterally. Calves are soft and non- tender to palpation bilaterally. ALPs device is in place. Assessment/Plan Assessment: Pt is an 88 year old male POD#0 s/p pin placement for correction of left femoral neck fracture with a past medical history including HTN, dementian and depression. Pt is confused, but at his baseline. Pt has scrotal edema possibly secondary to traumatic diamond placement in ED. Post-operative pain is being well controlled. Plan: Plan: Continue with pain control. Cefazolin 2 gm to be given. Encourage patient to ambulate. Encourage incentive spirometer use. May have regular diet as tolerated. PT to see patient. ALPs device in use for DVT prophylaxis. Contacted medical team regarding scrotal edema and fever, will continue to monitor urine output. Continue with home medications. Will begin Eliquis 2.5 mg BID tomorrow. Will follow up with morning labs. Will discuss with surgical PAs. Faith Stock 02/06/18 0010: Assessment/Plan Assessment: Called to bedside to evaluate scrotal edema, concern raised by medical team that pt has developed strangulated hernia. Scrotum on R side edematous, soft. Painful to assess, pt resisting exam, guarding. Groin tender, soft bilaterally. Plan for CT abdomen and pelvis, will discuss results and exam with Dr. Carpenter, recommend npo for now.
[2018-02-06 15:43] VITALS: BP 160/90
--- NOTE | 2018-02-06 18:49 | CT SCAN REPORT ---
EXAMINATION: CT ABDOMEN AND PELVIS WITH CONTRAST CLINICAL INFORMATION: Scrotal pain and swelling. Concern for a hernia with strangulation. COMPARISON: CT abdomen and pelvis 12/25/2017. TECHNIQUE: Multidetector volumetric imaging was performed of the abdomen and pelvis following IV administration of 95 mL of Optiray 320 intravenous contrast. Sagittal and coronal reformatted images were obtained on the technologist's workstation. DLP: 1399.9 mGy-cm FINDINGS: LUNG BASES: There is emphysematous changes of the lungs. Lung bases are clear. No pleural effusion. LIVER, GALLBLADDER, AND BILIARY TREE: There is a hepatic cyst measuring 4 x 3 x 2.5 cm within the left lobe of liver. No suspicious liver lesions. There is no intrapelvic bile duct dilatation. The gallbladder is unremarkable with no evidence of radiopaque gallstones, gallbladder wall thickening, or obvious pericholecystic inflammatory changes. PANCREAS: The pancreas is atrophic. There is no acute change of the pancreas. No inflammation or mass. SPLEEN: Unremarkable. ADRENAL GLANDS: Unremarkable. KIDNEYS AND URETERS: The kidneys are normal in size, shape, and attenuation. No hydronephrosis, hydroureter, or calculi seen. No perinephric stranding. There are numerous bilateral large pedunculated renal cysts and smaller cortical cysts in both kidneys. There is no hydronephrosis. There are no calculi in the kidneys or the ureter. BLADDER: The dome of the bladder has been pulled into the right inguinal canal, into the right inguinal hernia. Sagittal image 91. There is a Oconnor catheter within the bladder. The bladder is empty. There is some air within the bladder from the placement of the Oconnor catheter. GASTROINTESTINAL TRACT: There is no herniation of bowel loops. There is marked diverticulosis of the sigmoid colon. No diverticulitis. No bowel wall thickening or edema. No bowel obstruction. There is a moderate volume of stool in the colon. The appendix is not seen. The small bowel loops are unremarkable. ABDOMINAL WALL: There is bilateral fat-containing inguinal hernias. The hernia on the right measures 3.8 x 5 cm in AP and transverse dimension. The hernia on the left measures 3.4 x 6 cm. The inferior margin of both of these hernias sacs are not included on the study. The dome of the bladder is pulled into the right inguinal hernia opening. There is no herniation of bowel. LYMPH NODES: Normal. VASCULAR: There are scattered vascular wall calcifications of the abdominal aorta. There is no aneurysm of the aorta. PELVIC VISCERA: The prostate measures 5.3 cm transverse. OSSEOUS STRUCTURES: There is orthopedic pins within the left femoral neck. There is degenerative spondylosis of the spine with multilevel bridging and nonbridging osteophytes at the endplates of the vertebrae. There is disc height narrowing throughout the spine and multilevel facet joint arthrosis. IMPRESSION: 1. There are large bilateral fat-containing inguinal hernias. 2. The dome of the collapsed bladder is pulled into the right inguinal hernia. There is a Oconnor catheter within the bladder. 3. There is marked diverticulosis of the sigmoid colon but there is no acute abnormality of the bowel. 4. There is a hepatic cyst and multiple bilateral renal cysts.
[2018-02-06 22:39] VITALS: BP 124/80
--- NOTE | 2018-02-06 22:50 | Cons- General Surgery ---
Darnell Vaughn 02/06/182237: General Information and HPI Consulting Request Date of Consult: 02/06/18 Requested By: Arsenio Hurt MD Reason for Consult: Testicular swelling and right groin tenderness Source of Information: old records, ct abd/pelvis Exam Limitations: clinical condition History of Present Illness: Mr. Cobb is an 88-year-old male who is status post percutaneous pinning of left hip fracture. Postop day 1 he was noted to have increased right groin pain with associated testicular swelling in meatal bleeding secondary to traumatic Oconnor insertion in the emergency room upon admission. Medical staff was concerned and the patient was evaluated at the bedside by ANGELICA Daigle. She recommended to the medical team that a CAT scan of the abdomen and pelvis may be helpful to evaluate this groin tenderness and that they should follow-up with a surgical consult. After CAT scan results were obtained to determine that the patient had bilateral fat-containing hernias in the right inguinal hernia also contained a portion of the dome of his bladder. Allergies/Medications Allergies: Coded Allergies: No Known Allergies (01/01/17) Past History Medical History Blood Transfusion Hx: No Neurological: dementia Cardiovascular: hypertension Renal: chronic kidney disease Musculoskeletal: falls Surgical History Pertinent Surgical History: ROTATOR CUFF Psychosocial History Where Do You Live? Assisted Living Who Do You Live With? spouse Smoking Status: Never Smoked ETOH Use: denies use Illicit Drug Use: denies illicit drug use Employment History Employment: Retired Exam & Diagnostic Data Vital Signs and I&O Vital Signs Date Time Temp Pulse Resp B/P B/P Pulse O2 O2 Flow FiO2 Mean Ox Delivery Rate 02/06 2239 100.9 80 20 124/80 95 Room Air 02/06 1543 100.1 82 21 160/90 94 Room Air 02/06 1103 70 130/76 02/06 0709 99.5 72 20 100/58 94 Room Air Intake & Output 02/06 1600 02/06 0802/06 0000 02/05 1600 02/05 0000 Intake Total 120 600 300 500 220 Output Total 450 300 300 Balance -330 300 0 500 220 Intake, IV 600 300 500 100 Intake, Oral 120 0 0 0 120 Number 1 Bowel Movements Output, Urine 450 300 300 Patient 215 lb 195 lb Weight Weight Estimated Measurement Method Last 24 Hours of Labs: Laboratory Tests 02/06 02/06 1915 0705 Chemistry Sodium (137 - 145 mmol/L) 137 Potassium (3.5 - 5.1 mmol/L) 4.5 Chloride (98 - 107 mmol/L) 105 Carbon Dioxide (22 - 30 mmol/L) 26 Anion Gap (5 - 16) 6 BUN (9 - 20 mg/dL) 21 H Creatinine (0.7 - 1.2 mg/dL) 1.0 Estimated GFR (>60 ml/min) > 60 BUN/Creatinine Ratio (7 - 25 %) 21.0 Hematology CBC w Diff NO MAN DIFF REQ WBC (4.8 - 10.8 /CUMM) 8.2 RBC (4.70 - 6.10 /CUMM) 5.03 Hgb (14.0 - 18.0 G/DL) 13.7 L Hct (42 - 52 %) 40.7 L MCV (80.0 - 94.0 FL) 80.9 MCH (27.0 - 31.0 PG) 27.2 MCHC (33.0 - 37.0 G/DL) 33.6 RDW (11.5 - 14.5 %) 13.5 Plt Count (130 - 400 /CUMM) 138 MPV (7.4 - 10.4 FL) 8.6 Gran % (42.2 - 75.2 %) 79.1 H Lymphocytes % (20.5 - 51.1 %) 8.8 L Monocytes % (1.7 - 9.3 %) 6.6 Eosinophils % (0 - 5 %) 5.5 H Basophils % (0.0 - 2.0 %) 0 Absolute Granulocytes (1.4 - 6.5 /CUMM) 6.5 Absolute Lymphocytes (1.2 - 3.4 /CUMM) 0.7 L Absolute Monocytes (0.10 - 0.60 /CUMM) 0.5 Absolute Eosinophils (0.0 - 0.7 /CUMM) 0.5 Absolute Basophils (0.0 - 0.2 /CUMM) 0 Urines Urine Color (YEL,AMB,STR) YEL Urine Clarity (CLEAR) HAZY H Urine pH (5.0 - 8.0) 6.0 Ur Specific [place] (1.001 - 1.035) 1.020 Urine Protein (NEG,<30 MG/DL) 100 H Urine Ketones (NEG) TRACE H Urine Nitrite (NEG) NEG Urine Bilirubin (NEG) NEG Urine Urobilinogen (0.1 - 1.0 EU/dl) 1.0 Ur Leukocyte Esterase (NEG) NEG Ur Microscopic SEDIMENT EXAMINED Urine RBC (0 - 5 /HPF) PACKD H Urine WBC (0 - 2 /HPF) 5-10 H Urine Bacteria (NEG/NONE) MANY H Urine Hemoglobin (NEG) LARGE H Urine Glucose (N MG/DL) NEG Imaging Results: SERVICE DATE: 02/06/18 EXAM TYPE: CAT - CT ABD & PELVIS W IV CONTRAST EXAMINATION: CT ABDOMEN AND PELVIS WITH CONTRAST CLINICAL INFORMATION: Scrotal pain and swelling. Concern for a hernia with strangulation. COMPARISON: CT abdomen and pelvis 12/25/2017. TECHNIQUE: Multidetector volumetric imaging was performed of the abdomen and pelvis following IV administration of 95 mL of Optiray 320 intravenous contrast. Sagittal and coronal reformatted images were obtained on the technologist's workstation. DLP: 1399.9 mGy-cm FINDINGS: LUNG BASES: There is emphysematous changes of the lungs. Lung bases are clear. No pleural effusion. LIVER, GALLBLADDER, AND BILIARY TREE: There is a hepatic cyst measuring 4 x 3 x 2.5 cm within the left lobe of liver. No suspicious liver lesions. There is no intrapelvic bile duct dilatation. The gallbladder is unremarkable with no evidence of radiopaque gallstones, gallbladder wall thickening, or obvious pericholecystic inflammatory changes. PANCREAS: The pancreas is atrophic. There is no acute change of the pancreas. No inflammation or mass. SPLEEN: Unremarkable. ADRENAL GLANDS: Unremarkable. KIDNEYS AND URETERS: The kidneys are normal in size, shape, and attenuation. No hydronephrosis, hydroureter, or calculi seen. No perinephric stranding. There are numerous bilateral large pedunculated renal cysts and smaller cortical cysts in both kidneys. There is no hydronephrosis. There are no calculi in the kidneys or the ureter. BLADDER: The dome of the bladder has been pulled into the right inguinal canal, into the right inguinal hernia. Sagittal image 91. There is a Oconnor catheter within the bladder. The bladder is empty. There is some air within the bladder from the placement of the Oconnor catheter. GASTROINTESTINAL TRACT: There is no herniation of bowel loops. There is marked diverticulosis of the sigmoid colon. No diverticulitis. No bowel wall thickening or edema. No bowel obstruction. There is a moderate volume of stool in the colon. The appendix is not seen. The small bowel loops are unremarkable. ABDOMINAL WALL: There is bilateral fat-containing inguinal hernias. The hernia on the right measures 3.8 x 5 cm in AP and transverse dimension. The hernia on the left measures 3.4 x 6 cm. The inferior margin of both of these hernias sacs are not included on the study. The dome of the bladder is pulled into the right inguinal hernia opening. There is no herniation of bowel. LYMPH NODES: Normal. VASCULAR: There are scattered vascular wall calcifications of the abdominal aorta. There is no aneurysm of the aorta. PELVIC VISCERA: The prostate measures 5.3 cm transverse. OSSEOUS STRUCTURES: There is orthopedic pins within the left femoral neck. There is degenerative spondylosis of the spine with multilevel bridging and nonbridging osteophytes at the endplates of the vertebrae. There is disc height narrowing throughout the spine and multilevel facet joint arthrosis. IMPRESSION: 1. There are large bilateral fat-containing inguinal hernias. 2. The dome of the collapsed bladder is pulled into the right inguinal hernia. There is a Oconnor catheter within the bladder. 3. There is marked diverticulosis of the sigmoid colon but there is no acute abnormality of the bowel. 4. There is a hepatic cyst and multiple bilateral renal cysts. DICTATED BY: Krzysztof Rob MD DATE/TIME DICTATED:02/06/181801 CLOTHING EXAMINER:MARITZA DATE/TIME TRANSCRIBED:02/06/181801 Assessment/Plan Assessment/Plan Mr. Cobb is an 88-year-old male who is status post percutaneous pinning of left hip fracture demonstrated postoperative increased scrotal swelling and right groin pain. A CAT scan obtained demonstrated bilateral fat containing inguinal hernias, with right inguinal hernia also containing dome of bladder. There is no evidence of incarceration or bowel within either hernia. This CAT scan was reviewed by Dr. Malone feels that there is no need for emergent surgical intervention at this time and the patient should be observed. He may continue with a regular diet and surgical follow-up will continue as needed if symptoms do not sae. Consult Acknowledgment - Thank you for your consult request. Marilu MILLERJl 02/08/18 4036: General Information and HPI Allergies/Medications Home Med List: Apixaban (Eliquis) 2.5 MG TABLET 1 TAB PO BID DVT PPX Please take 1 tab in AM and 1 tab in PM Follow up with orthopedic Aspirin (Aspirin*) 81 MG TAB.CHEW 1 TAB PO DAILY HEART HEALTH (Reported) Cetirizine HCl (Zyrtec) 10 MG TABLET 1 TAB PO QPM ALLERGIES (Reported) Donepezil HCl (Aricept) 10 MG TABLET 1 TAB PO DAILY DEMENTIA (Reported) Escitalopram Oxalate (Lexapro) 10 MG TABLET 1 TAB PO DAILY DEPRESSION ( Reported) Memantine HCl (Namenda) 10 MG TABLET 1 TAB PO BID DEMENTIA (Reported) Moxifloxacin HCl (Avelox) 400 MG TABLET 1 TAB PO DAILY PNEUMONIA Oxybutynin Chloride (Ditropan XL) 15 MG TAB.ER.24 1 TAB PO DAILY BLADDER ( Reported) Tamsulosin HCl (Flomax) 0.4 MG CAP.ER.24H 1 CAP PO DAILY BPH (Reported) Assessment/Plan Consult Acknowledgment - Thank you for your consult request. Attending MD Review Statement Attending Statement Attending MD Statement: discuss w/resident/PA/MANUFACTURING TECHNOLOGY ANALYST, agreed w/resident/PA/MANUFACTURING TECHNOLOGY ANALYST, reviewed EMR data (avail), reviewed images
[2018-02-07 06:53] VITALS: BP 170/90
--- NOTE | 2018-02-07 07:12 | PN- Housestaff ---
Dago Estrella 02/07/18 0712: Subjective Follow-up For: s/p mechanical fall and left femoral neck fracture s/p repair with multiple cannulated screws scrotal edema Subjective: Pt seen and examined this am. Low grade fever yesterday, though latest was 98.6. He complained of pain in the left hip area. Scrotal edema is reduced, there was no pain on palpation. He would sleep but wake up as his name was called. He offered no other complains. No blood noticed on urine. Review of Systems Constitutional: Reports: see HPI. Objective Last 24 Hrs of Vital Signs/I&O Vital Signs Date Time Temp Pulse Resp B/P B/P Pulse O2 O2 Flow FiO2 Mean Ox Delivery Rate 02/07 0653 98.6 83 20 170/90 95 Room Air 02/06 2239 100.9 80 20 124/80 95 Room Air 02/06 1543 100.1 82 21 160/90 94 Room Air 02/06 1103 70 130/76 02/06 1040 98.2 70 24 130/76 94 Room Air Intake & Output 02/07 1600 02/07 0800 02/07 0000 Intake Total 600 300 Output Total 350 250 Balance 250 50 Intake, IV 600 300 Intake, Oral 0 0 Output, Urine 350 250 Physical Exam General Appearance: Alert, Cooperative, Mild Distress HEENT: Atraumatic Neck: Supple Cardiovascular: Regular Rate, Normal S1, Normal S2 Lungs: Clear to Auscultation, Normal Air Movement Abdomen: Normal Bowel Sounds, Soft, No Tenderness Extremities: No Edema Reproductive (MALE) Swelling reduced compared to yesterday. No ecchymosis noted. No tenderness on palpation. Current Medications: Current Medications Sig/Mame Start time Last Medication Dose Route Stop Time Status Admin Acetaminophen 650 MG Q6P PRN 02/04 2230 AC PO Acetaminophen 1,000 MG Q6P PRN 02/04 2230 AC 02/05 IV 1435 Apixaban 2.5 MG BID 02/07 2100 AC PO Cefazolin Sodium 2 GM IQ8 02/06 1600 DC 02/07 N/A 1 UNIT IV 02/07 0029 0005 Celecoxib 200 MG BID PRN 02/06 1415 AC PO Donepezil HCl 10 MG DAILY 02/05 0900 AC 02/06 PO 1103 Escitalopram Oxalate 10 MG DAILY 02/05 09 AC 02/06 PO 1104 Heparin Sodium 5,000 UNIT Q8 02/05 0600 DC 02/06 (Porcine) SC 0536 Memantine 10 MG BID 02/05 09 AC 02/06 PO 2030 Oxybutynin Chloride 5 MG TID 02/05 09 AC 02/06 PO 2030 Oxycodone/ 1 TAB Q6P PRN 02/04 2230 AC Acetaminophen PO Potassium Chloride 20 MEQ Q13H 02/05 930 AC 02/07 Dextrose/Sodium 1,000 ML IV 0005 Chloride Tamsulosin HCl 0.4 MG DAILY 02/05 09 AC 02/06 PO 110 Last 24 Hrs of Lab/Calvin Results Last 24 Hrs of Labs/Mics: Laboratory Tests 02/06/181914: Urine Color YEL, Urine Clarity HAZY H, Urine pH 6.0, Ur Specific [place] 1.020, Urine Protein 100 H, Urine Ketones TRACE H, Urine Nitrite NEG, Urine Bilirubin NEG, Urine Urobilinogen 1.0, Ur Leukocyte Esterase NEG, Ur Microscopic SEDIMENT EXAMINED, Urine RBC PACKD H, Urine WBC 5-10 H, Urine Bacteria MANY H, Urine Hemoglobin LARGE H, Urine Glucose NEG Microbiology 02/06 1915 URINE ROUT: Urine Culture - RECD Assessment/Plan Assessment: Assessment: 88 y/o M with PMH HTN and dementia presenting s/p unwitnessed fall earlier today. Patient's heard a noise and found the patient on the floor, she reported no LOC. They live in an assisted living facility. He is not on anticoagulation. Patient was complaining of head pain and left hip pain post fall. Imaging shows left femoral neck fracture. Head CT shows no acute intracranial pathology. Pt was admitted for further care of: #Left femoral neck fracture s/p left repair with multiple cannulated screws -OR yesterday, s/p left repair with multiple cannulated screws. Patient is in mild distress. -IV tylenol and percocet, celebrex depending on pain level. Avoid narcotics. -PT to follow. -Daughter is POA. #Scrotal edema, new onset Patient does have bilateral inguinal hernia. Stat CT scan showed no incarceration. GS was consulted. Scrotum is nontender today, though patient is receiving pain medications. Will continue to monitor and see evolution. He is to follow with Dr. Michel as an outpatient. Will d/c diamond and observe status post diamond removal. -Scrotal elevation -Continue to monitor -Stat CT showed b/l inguinal hernia, no incarceration. FULL CODE REG DIET DVT PPX ALPS, back on elliquis Problem List: 1. Closed left hip fracture 2. Hip pain, left Pain Ratin Pain Location: Left hip Pain Goal: Pain 4 or less Pain Plan: As indicated Tomorrow's Labs & Rationales: Arsenio Bearden MD 02/07/18 1710: Attending MD Review Statement Attending Statement Attending MD Statement: examined this patient, discuss w/resident/PA/VICE PRESIDENT & GENERAL MANAGER [employer] [place], agreed w/resident/PA/VICE PRESIDENT & GENERAL MANAGER [employer] [place], reviewed EMR data (avail), discussed with nursing, discussed with case mgmt, amended to note Attending Assessment/Plan: The patient was seen and discussed with house staff. Scrotal pain resolved. ? transient herniation of bladder into inguinal canal? Improving post operatively. Will need STR.
--- NOTE | 2018-02-07 07:52 | PN- Orthopedic ---
Subjective Subjective: Tired but awakens easliy No specific complaints Pain is tolerable with meds Tolerating diet Objective Vital Signs and I&Os Vital Signs Date Time Temp Pulse Resp B/P B/P Pulse O2 O2 Flow FiO2 Mean Ox Delivery Rate 02/07 0653 98.6 83 20 170/90 95 Room Air 02/06 2239 100.9 80 20 124/80 95 Room Air 02/06 1543 100.1 82 21 160/90 94 Room Air 02/06 1103 70 130/76 02/06 1040 98.2 70 24 130/76 94 Room Air 02/06 0800 Room Air Intake & Output 02/07 0802/07 0000 02/06 1600 02/06 0802/06 0000 02/05 1600 Intake Total 600 300 120 600 300 500 Output Total 350 250 450 300 300 Balance 250 50 -330 300 0 500 Intake, IV 600 300 600 300 500 Intake, Oral 0 0 120 0 0 0 Output, Urine 350 250 450 300 300 Patient 215 lb Weight Weight Estimated Measurement Method Physical Exam: Tmax 100.9 last night Tcurrent 98.6 all other vss General: oriented times three Abd: soft, good bs Ext: warm, normosensate, good strength, no calf tenderness Wd: ice pack in place, dressing clean and dry Assessment/Plan Assessment/Plan 88yo male pod 1 s/p L hip pinning PT - partial weight bear to LLE pain management eliquis to start tonight for dvt ppx - ordered dc planning recommend dc lobo all other plans per medical team Core Measures Venous Thromboembolism VTE Risk Factors Acute Medical Illness No Mechanical VTE Prophylaxis d/t N/A MechProphylax Ordered No VTE Pharm Prophylaxis d/t NA PharmProphylax ordered
[2018-02-07 09:00] VITALS: BP 152/70
[2018-02-07 10:09] LABS: ABSOLUTE BASOPHIL COUNT 0 /CUMM (0.0-0.2); ABSOLUTE EOSINOPHIL COUNT 0.5 /CUMM (0.0-0.7); ABSOLUTE GRANULOCYTE CT 5.8 /CUMM (1.4-6.5); ABSOLUTE LYMPH COUNT 0.7 /CUMM (1.2-3.4); ABSOLUTE MONOCYTE COUNT 0.5 /CUMM (0.10-0.60); BASOPHIL % 0.1 % (0.0-2.0); EOSINOPHIL % 6.7 % (0-5); GRANULOCYTE % 77.4 % (42.2-75.2); HEMATOCRIT 36.4 % (42-52); MEAN CORPUSCULAR HGB 27.4 PG (27.0-31.0); MEAN CORPUSCULAR HGB CONC 34.2 G/DL (33.0-37.0); MEAN CORPUSCULAR VOLUME 80.1 FL (80.0-94.0); MEAN PLATELET VOLUME 8.9 FL (7.4-10.4); PLATELET COUNT 142 /CUMM (130-400); RED BLOOD CELL CT 4.54 /CUMM (4.70-6.10); WHITE BLOOD CELL COUNT 7.5 /CUMM (4.8-10.8)
[2018-02-07 15:42] VITALS: BP 120/80
[2018-02-07 22:31] VITALS: BP 142/72
--- NOTE | 2018-02-08 06:42 | PN- Housestaff ---
Dago Estrella 02/08/18 0641: Subjective Follow-up For: s/p mechanical fall and left femoral neck fracture s/p repair with multiple cannulated screws scrotal edema Subjective: Pt seen and examined this am. Afebrile, breathing comfortably on room air. He continues to be drowsy. No pain is noted on the scrotum, though still enlarged; he intermittingly complains of pain on his left hip. His mentation is otherwise at baseline. Review of Systems Constitutional: Reports: see HPI. Objective Last 24 Hrs of Vital Signs/I&O Vital Signs Date Time Temp Pulse Resp B/P B/P Pulse O2 O2 Flow FiO2 Mean Ox Delivery Rate 02/08 08 97.9 83 18 110/60 02/08 0756 Room Air Room Air 02/08 0654 97.9 83 18 110/60 93 02/07 2231 98.2 85 22 142/72 95 Room Air 02/07 1609 Room Air Room Air 02/07 1542 98.2 81 22 120/80 94 Intake & Output 02/08 1600 02/08 0800 02/08 0000 Intake Total 50 50 Output Total 400 50 Balance -350 0 Intake, Oral 50 50 Number 2 Bowel Movements Output, Urine 400 50 Physical Exam General Appearance: Cooperative, No Acute Distress, drowsy HEENT: Atraumatic Neck: Supple Cardiovascular: Regular Rate, Normal S1, Normal S2, No Murmurs Lungs: Clear to Auscultation, Normal Air Movement Abdomen: Normal Bowel Sounds, Soft, No Tenderness Current Medications: Current Medications Sig/Mame Start time Last Medication Dose Route Stop Time Status Admin Acetaminophen 0 .STK-MED ONE 02/08 901 DC PO Acetaminophen 500 MG Q6H 02/08 830 AC 02/08 PO 0859 Acetaminophen 650 MG Q6P PRN 02/04 2230 DC PO Acetaminophen 1,000 MG Q6P PRN 02/04 2230 DC 02/07 IV 0814 Apixaban 2.5 MG BID 02/07 2100 AC 02/08 PO 0857 Celecoxib 200 MG BID PRN 02/06 1415 AC PO Donepezil HCl 10 MG DAILY 02/05 900 AC 02/08 PO 08 Escitalopram Oxalate 10 MG DAILY 02/05 900 AC 02/08 PO 899 Memantine 10 MG BID 02/05 900 AC 02/08 PO 0857 Oxybutynin Chloride 5 MG TID 02/05 0900 AC 02/08 PO 0857 Oxycodone/ 1 TAB Q6P PRN 02/04 2230 AC Acetaminophen PO Patient Medication 1 ED ONE ONE 02/07 1530 DC 02/07 Teaching ED 02/07 1531 1831 Tamsulosin HCl 0.4 MG DAILY 02/05 0900 AC 02/08 PO 0857 Last 24 Hrs of Lab/Calvin Results Last 24 Hrs of Labs/Mics: Laboratory Tests 02/08/18 0805: Anion Gap 6, Estimated GFR > 60, BUN/Creatinine Ratio 20.0, CBC w Diff NO MAN DIFF REQ, RBC 4.42 L, MCV 80.5, MCH 26.9 L, MCHC 33.4, RDW 12.8, MPV 9.1, Gran % 76.7 H, Lymphocytes % 8.3 L, Monocytes % 8.6, Eosinophils % 6.3 H, Basophils % 0.1, Absolute Granulocytes 5.7, Absolute Lymphocytes 0.6 L, Absolute Monocytes 0.6, Absolute Eosinophils 0.5, Absolute Basophils 0 Assessment/Plan Assessment: Assessment: 88 y/o M with PMH HTN and dementia presenting s/p unwitnessed fall earlier today. Patient's heard a noise and found the patient on the floor, she reported no LOC. They live in an assisted living facility. He is not on anticoagulation. Patient was complaining of head pain and left hip pain post fall. Imaging shows left femoral neck fracture. Head CT shows no acute intracranial pathology. Pt was admitted for further care of: #Left femoral neck fracture s/p left repair with multiple cannulated screws -IV tylenol and percocet, celebrex depending on pain level. Avoid narcotics. -PT following. -Daughter is POA. #Scrotal edema, new onset Patient does have bilateral inguinal hernia. Stat CT scan showed no incarceration. GS was consulted. Scrotum continues to be nontender today, though patient is receiving pain medications. Will continue to monitor and see evolution. He is to follow with Dr. Michel as an outpatient. Good urine output. -Continue to monitor -Stat CT showed b/l inguinal hernia, no incarceration. -Currently awaiting placement for rehab facility. Will be discharged after. FULL CODE REG DIET DVT PPX ALPS, back on [facility] Problem List: 1. Closed left hip fracture 2. Hip pain, left Pain Ratin (pt unable to answer) Pain Location: L hip pain Pain Goal: Pain 4 or less Pain Plan: as indicated Tomorrow's Labs & Rationales: n/a Consulting Request: Consulting Specialty: General Surgery Consulting Physician: Arsenio Oneal MD 02/08/18 2112: Attending MD Review Statement Attending Statement Attending MD Statement: examined this patient, discuss w/resident/PA/RECORD TESTER, agreed w/resident/PA/RECORD TESTER, reviewed EMR data (avail), discussed with nursing, discussed with case mgmt, amended to note Attending Assessment/Plan: The patient was seen and discussed with house staff, nursing, and case management. OK to discharge to [facility] today ([place]).
[2018-02-08 06:54] VITALS: BP 110/60
--- NOTE | 2018-02-08 08:17 | PN- Orthopedic ---
Subjective Subjective: No complaints. It does not appear that he is being given any pain medication in the last 24 hours. Objective Vital Signs and I&Os Vital Signs Date Time Temp Pulse Resp B/P B/P Pulse O2 O2 Flow FiO2 Mean Ox Delivery Rate 02/08 0654 97.9 83 18 110/60 93 02/07 2231 98.2 85 22 142/72 95 Room Air 02/07 1609 Room Air Room Air 02/07 1542 98.2 81 22 120/80 94 02/07 0900 152/70 Intake & Output 02/08 1600 02/08 0802/08 0000 02/07 1600 02/07 0000 Intake Total 50 760 600 300 Output Total 675 84 4932 350 250 Balance -400 0 -440 250 50 Intake, IV 110 600 300 Intake, Oral 50 650 0 0 Number 2 1 Bowel Movements Output, Urine 624 41 7951 350 250 Physical Exam: General - alert but sleepy. demented at baseline. Extremities - left hip dressing changed with assistance. incision well approximated with jaimie. no surrounding erythema or exudates. no hematoma. calves soft and nontender b/l. nvi. Current Medications: Current Medications Sig/Mame Start time Last Medication Dose Route Stop Time Status Admin Acetaminophen 500 MG Q6 02/08 830 UNVr PO Acetaminophen 650 MG Q6P PRN 02/04 2230 DC PO Acetaminophen 1,000 MG Q6P PRN 02/04 2230 DC 02/07 IV 0814 Apixaban 2.5 MG BID 02/07 2100 AC 02/07 PO 203 Celecoxib 200 MG BID PRN 02/06 1415 AC PO Donepezil HCl 10 MG DAILY 02/05 900 AC 02/07 PO 08 Escitalopram Oxalate 10 MG DAILY 02/05 900 AC 02/07 PO 08 Memantine 10 MG BID 02/05 900 AC 02/07 PO 203 Oxybutynin Chloride 5 MG TID 02/05 900 AC 02/07 PO 203 Oxycodone/ 1 TAB Q6P PRN 02/04 223 AC Acetaminophen PO Patient Medication 1 ED ONE ONE 02/07 1530 DC 02/07 Teaching ED 02/07 1531 1831 Potassium Chloride 20 MEQ Q13H 02/05 930 DC 02/07 Dextrose/Sodium 1,000 ML IV 0005 Chloride Tamsulosin HCl 0.4 MG DAILY 02/05 900 AC 02/07 PO 0811 Results Last 48 Hours of Labs: Laboratory Tests 02/07 02/06 0920 1915 Chemistry Sodium (137 - 145 mmol/L) 134 L Potassium (3.5 - 5.1 mmol/L) 4.3 Chloride (98 - 107 mmol/L) 103 Carbon Dioxide (22 - 30 mmol/L) 26 Anion Gap (5 - 16) 5 BUN (9 - 20 mg/dL) 18 Creatinine (0.7 - 1.2 mg/dL) 1.0 Estimated GFR (>60 ml/min) > 60 BUN/Creatinine Ratio (7 - 25 %) 18.0 Hematology CBC w Diff NO MAN DIFF REQ WBC (4.8 - 10.8 /CUMM) 7.5 RBC (4.70 - 6.10 /CUMM) 4.54 L Hgb (14.0 - 18.0 G/DL) 12.4 L Hct (42 - 52 %) 36.4 L MCV (80.0 - 94.0 FL) 80.1 MCH (27.0 - 31.0 PG) 27.4 MCHC (33.0 - 37.0 G/DL) 34.2 RDW (11.5 - 14.5 %) 13.0 Plt Count (130 - 400 /CUMM) 142 MPV (7.4 - 10.4 FL) 8.9 Gran % (42.2 - 75.2 %) 77.4 H Lymphocytes % (20.5 - 51.1 %) 8.9 L Monocytes % (1.7 - 9.3 %) 6.9 Eosinophils % (0 - 5 %) 6.7 H Basophils % (0.0 - 2.0 %) 0.1 Absolute Granulocytes (1.4 - 6.5 /CUMM) 5.8 Absolute Lymphocytes (1.2 - 3.4 /CUMM) 0.7 L Absolute Monocytes (0.10 - 0.60 /CUMM) 0.5 Absolute Eosinophils (0.0 - 0.7 /CUMM) 0.5 Absolute Basophils (0.0 - 0.2 /CUMM) 0 Urines Urine Color (YEL,AMB,STR) YEL Urine Clarity (CLEAR) HAZY H Urine pH (5.0 - 8.0) 6.0 Ur Specific [place] (1.001 - 1.035) 1.020 Urine Protein (NEG,<30 MG/DL) 100 H Urine Ketones (NEG) TRACE H Urine Nitrite (NEG) NEG Urine Bilirubin (NEG) NEG Urine Urobilinogen (0.1 - 1.0 EU/dl) 1.0 Ur Leukocyte Esterase (NEG) NEG Ur Microscopic SEDIMENT EXAMINED Urine RBC (0 - 5 /HPF) PACKD H Urine WBC (0 - 2 /HPF) 5-10 H Urine Bacteria (NEG/NONE) MANY H Urine Hemoglobin (NEG) LARGE H Urine Glucose (N MG/DL) NEG Assessment/Plan Assessment/Plan This 88 year old male with history of hypertension and dementia, who presented with left femoral neck fracture s/p unwitnessed fall, is now POD#2 s/p repair left femoral neck fracture with multiple cannulated screws diet as tolerated ordered oral tylenol 500 mg every 6 hours around the clock, as he hasn't been given any pain medication in the last 24 hours. avoid narcotics if able PT - partial weight bear to LLE eliquis 2.5mg BID - dvt ppx bowel regime ordered dry guaze dressing change daily, left hip d/c planning, likely str placement will need jaimie removed around post-op day#14 follow up with in 4-6 weeks
[2018-02-08 09:41] LABS: ABSOLUTE BASOPHIL COUNT 0 /CUMM (0.0-0.2); ABSOLUTE EOSINOPHIL COUNT 0.5 /CUMM (0.0-0.7); ABSOLUTE GRANULOCYTE CT 5.7 /CUMM (1.4-6.5); ABSOLUTE LYMPH COUNT 0.6 /CUMM (1.2-3.4); ABSOLUTE MONOCYTE COUNT 0.6 /CUMM (0.10-0.60); BASOPHIL % 0.1 % (0.0-2.0); EOSINOPHIL % 6.3 % (0-5); GRANULOCYTE % 76.7 % (42.2-75.2); HEMATOCRIT 35.6 % (42-52); MEAN CORPUSCULAR HGB 26.9 PG (27.0-31.0); MEAN CORPUSCULAR HGB CONC 33.4 G/DL (33.0-37.0); MEAN CORPUSCULAR VOLUME 80.5 FL (80.0-94.0); MEAN PLATELET VOLUME 9.1 FL (7.4-10.4); PLATELET COUNT 138 /CUMM (130-400); RBC DISTRIBUTION WIDTH 12.8 % (11.5-14.5); RED BLOOD CELL CT 4.42 /CUMM (4.70-6.10); WHITE BLOOD CELL COUNT 7.5 /CUMM (4.8-10.8)
[2018-02-08] MEDS ORDERED: ELIQUIS2.5 M1 PO (14:05)
--- NOTE | 2018-02-08 14:07 | Patient Discharge Instructions ---
Discharge Instructions General Discharge Information You were seen/treated for: Hip fracture You had these procedures: Hip surgery with screws Special Instructions: Follow up with Dr. Zaldivar (orthopedic) Follow up with Dr. Michel (surgery) Follow up with your primary care physician Patient was started on Eliquis for prophylaxis per ortho. Acute Coronary Syndrome Inclusion Criteria At DC or during hospital stay patient has or had the following: ACS DIAGNOSIS No Discharge Core Measures Meds if any: Prescribed or Continued at Discharge Meds if any: NOT Prescribed or Continued at Discharge Congestive Heart Failure Inclusion Criteria At DC or during hospital stay patient has or had the following: CHF DIAGNOSIS No Discharge Core Measures Meds if any: Prescribed or Continued at Discharge Meds if any: NOT Prescribed or Continued at Discharge Cerebrovascular accident Inclusion Criteria At DC or during hospital stay patient has or had the following: CVA/TIA Diagnosis No Discharge Core Measures Meds if any: Prescribed or Continued at Discharge Meds if any: NOT Prescribed or Continued at Discharge Venous thromboembolism Inclusion Criteria VTE Diagnosis No VTE Type NONE VTE Confirmed by (Test) NONE Discharge Core Measures - Per Current guidelines, there needs to be overlap - treatment for the first 5 days of Warfarin therapy. - If discharged on Warfarin prior to 5 days of - overlap therapy, the patient will need to be - assessed for post discharge needs including - *Post discharge parental anticoagulation - *Warfarin and/or parental anticoagulation education - *Follow up date to check INR post discharge At least 5 days overlap therapy as Inpatient No Meds if any: Prescribed or Continued at Discharge Note: Overlap Therapy is Warfarin and Anticoagulant Meds if any: NOT Prescribed or Continued at Discharge
[2018-02-08 15:10] VITALS: BP 118/60
[2018-02-08 16:39] VITALS: BP 118/60
== END 2018-02-08 18:15 | DRG 482 ==
LOC: ERH 15:47 → 2NA 20:35 → ERHI 20:35 → ENRESERV 02-05 18:59 → ENTRNSPT 02-05 19:40 → EDTRNSPT 02-05 19:45 → EDTRNSPTSTS 02-05 19:45 → 2NA 02-05 19:52 → CMPTRNSPT 02-05 20:12 → 2NA 02-05 21:01 → ENTRNSPT 02-06 10:09 → EDTRNSPT 02-06 10:29 → EDTRNSPTSTS 02-06 10:29 → CMPTRNSPT 02-06 10:51 → ENPENDDIS 02-08 14:29 → 2NA 02-08 18:15
PROVIDERS: Hospitalist; Physician Assistant Medical; Physician Assistant Surgical; Student in an Organized Health Care Education/Training Program
PROC: 0QS704Z Reposition Left Upper Femur with Internal Fixation Device, Open Approach (ICD-10-PCS; principal; 2018-02-06)
DX: S72.002A Fracture of unspecified part of neck of left femur, initial encounter for closed fracture (principal); G30.9 Alzheimer's disease, unspecified; F02.80 Dementia in other diseases classified elsewhere, unspecified severity, without behavioral disturbance, psychotic disturbance, mood disturbance, and anxiety; N40.0 Benign prostatic hyperplasia without lower urinary tract symptoms; F32.9 Major depressive disorder, single episode, unspecified; I12.9 Hypertensive chronic kidney disease with stage 1 through stage 4 chronic kidney disease, or unspecified chronic kidney disease; N18.9 Chronic kidney disease, unspecified; K40.20 Bilateral inguinal hernia, without obstruction or gangrene, not specified as recurrent; N50.89 Other specified disorders of the male genital organs; W19.XXXA Unspecified fall, initial encounter; Y92.009 Unspecified place in unspecified non-institutional (private) residence as the place of occurrence of the external cause; Z87.891 Personal history of nicotine dependence
CPT/HCPCS: 2NAP; ERO; 36415; 36592; 73502-LT; 73552; 74176; 74177; 76000; 81001; 82436; 87086; 93005; 93010; 96365; 97110-GO; 97116-GO; 97161-GP; 97530-GO; C1713; J0131; J0690; J1644; J3490; J7042